=== PATIENT | female | born 1925 | race Caucasian/White ===

== ENCOUNTER 2016-05-08 16:42 | Emergency (ER) | payer MEDICARE, OTHER ==
--- NOTE | 2016-05-08 17:10 | EDM.PDOC ---
ED HPI GI/ABDOMINAL - General Chief Complaint: Abdominal Pain Stated Complaint: ABD PAIN Time Seen by Provider: 05/08/16 17:03 Source of Information: Reports: Patient History Limitations: Reports: No limitations - History of Present Illness INITIAL COMMENTS - FREE TEXT/NARRATIVE: 89-year-old female presents to the EDhe may come to her daughter do to abdominal discomfort. She states since of fullness early satiety and no room for food. She's really not in pain. Of note the patient has had recent diagnosis of pancreatic carcinoma. On 03 April she underwent extensive pancreatic duct opening with a pancreatic cholangiogram and stent placement. Also the common bile duct stent placed by interventional radiology. This was done because of severe jaundice and pruritus. ERCP was being performed as a period of measure. She comes today feeling more short of breath and has increased abdominal distention. This is most likely secondary to accumulation of fluid. Symptom Onset Date: 04/23/16 (gradually worsening over the last 2 weeks.) Timing/Duration: Reports: Week(s):, Gradual onset Location: generalized Quality: Reports: fullness, other Severity: moderate (early satiety) Improves with: Reports: other. Denies: defecating Worsens with: Reports: other (eating.). Denies: defecating Context: Reports: other (recent diagnosis of pancreatic carcinoma with obstruction of the common bile duct requiring common bile duct stenting and pancreatic duct stenting.). Denies: sick contact, bad/questionable food, out of country travel, recent surgery, recent trauma, lifting, activity/exercise Associated Symptoms (-Female): Reports: constipation, loss of appetite, malaise, other. Denies: chest pain, back pain, groin pain, shoulder pain, bloody stools, fever/chills (shortness of breath), nausea/vomiting Treatments FAMILY DAY CARE PROVIDER: Reports: Other (see below) - Related Data Allergies/ADRs: Allergies Allergy/AdvReac Type Severity Reaction Status Date / Time penicillin V Allergy Facial Verified 05/08/16 18:33 Swelling red dye Allergy Rash Verified 05/08/16 18:33 Home Meds: Home Meds Carvedilol 25 mg PO BID 05/16/14 [History] LORazepam [Ativan] 1.5 mg PO BEDTIME PRN 05/16/14 [History] Levothyroxine 25 mcg PO DAILY 05/16/14 [History] SitaGLIPtin [Januvia] 100 mg PO DAILY 05/16/14 [History] Spironolactone 25 mg PO DAILY 05/16/14 [History] Aspirin [Adult Low Dose Aspirin EC] 81 mg PO DAILY 05/08/16 [History] Azelastine/Fluticasone [Dymista Nasal [place]] 137 mcg NASBOTH BID 05/08/16 [ History] Cyanocobalamin/FA/Pyridoxine [B Complex-Folic Acid] 1 tab PO DAILY 05/08/16 [ History] Dexlansoprazole [Dexilant] 60 mg PO DAILY 05/08/16 [History] Furosemide [Lasix] 20 mg PO DAILY 05/08/16 [History] Furosemide [Lasix] 40 mg PO BID #60 tablet 05/08/16 [Rx] L.acid/L.casei/B.bif/B.mar/Fos [Probiotic Blend Capsule] 1 tab PO DAILY [History] Levofloxacin [Levaquin] 250 mg PO Q24H #6 tablet 05/08/16 [Rx] Lipase/Protease/Amylase [Zenpep DR 15,000 Unit] 2 cap PO TID 05/08/16 [History] Loratadine [Claritin] 10 mg PO DAILY 05/08/16 [History] Metoclopramide [Reglan] 5 mg PO DAILY 05/08/16 [History] Simethicone 125 mg PO TID 05/08/16 [History] Spironolactone [Aldactone] 25 mg PO BID #60 tablet 05/08/16 [Rx] Turmeric Po 1 tab PO DAILY 05/08/16 [History] Ubiquinone Q-10 100 mg PO DAILY 05/08/16 [History] Past Medical History HEENT History: Reports: Allergic rhinitis Cardiovascular History: Reports: Afib (paroxysmal A. 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 Presented with obstructive jaundice and severe pruritus.known hiatal hernia) Genitourinary History: Reports: Chronic renal insuffiency (stage III) Musculoskeletal History: Reports: Back pain, chronic, Osteoarthritis, Osteoporosis Endocrine/Metabolic History: Reports: Hypothyroidism (on supplement.) - Past Surgical History HEENT Surgical History: Reports: Cataract surgery (bilateral) Cardiovascular Surgical History: Reports: Pacer (insert in place remote pacemaker) GI Surgical History: Reports: Appendectomy, Cholecystectomy, Colonoscopy, Other (see below) (recent ERCP with placement of pancreatic duct stent and retrograde placement of common bile duct stent by interventional radiology.) Social & Family History - Tobacco Use Smoking Status *Q: Never Smoker - Alcohol Use Days Per Week of Alcohol Use: 0 Number of Drinks Per Day: 0 Total Drinks Per Week: 0 - Recreational Drug Use Recreational Drug Use: No Drug Use in Last 12 Months: No - Living Situation & Occupation Living situation: Reports: ED ROS GENERAL - Review of Systems Review Of Systems: See Below Constitutional: Reports: malaise, weakness, fatigue, decreased appetite (states is really no room for food.early satiety and fullness.). Denies: fever, chills , weight loss HEENT: Reports: Glasses Respiratory: Reports: Shortness of Breath (due to abdominal distention.) Cardiovascular: Reports: Dyspnea on exertion, Edema (sometimes when she gets up too quick chronically in the lower chest remedies.), Lightheadedness. Denies: Chest pain, Blood pressure problem, Claudication, Orthopnea Endocrine: Reports: fatigue, high glucose GI/Abdominal: Reports: Abdominal pain (diffuse abdominal discomfort), Constipation, Decreased appetite. Denies: Black stool, Bloody stool, Diarrhea, Difficulty swallowing, Vomiting : Reports: frequency, incontinence (6 stress incontinence.) Musculoskeletal: Reports: back pain Skin: Reports: pallor, other (grayish in color. No longer jaundiced after the biliary stent was placed retrograde through the liver itself.) Neurological: Reports: No Symptoms (grayish in color.) Psychiatric: Reports: No symptoms ED EXAM, GI/ABD - Physical Exam Exam: See Below Exam Limited By: No limitations General Appearance: alert, WD/WN, no apparent distress, other Eyes: bilateral: pale conjunctiva (mildly palate) Throat/Mouth: Normal inspection, Normal lips, Normal oropharynx Head: atraumatic, normocephalic Neck: normal inspection, supple, non-tender, full range of motion. No: carotid bruit, lymphadenopathy (L), lymphadenopathy (R), thyromegaly Respiratory/Chest: respiratory distress (mild tachypnea.), decreased breath sounds (mildly decreased at 8:30 percent the posterior lung wilburn.), rales ( right base.). No: wheezing Cardiovascular: normal peripheral pulses, regular rate, rhythm, no JVD, no murmur. No: systolic murmur GI/Abdominal: normal bowel sounds, distention (diffusely distended and firm to palpation.), other (abdomen is firm to palpation with I suspect an ascites wave. There is some diffuse tympany to percussion in the upper abdomen I believe due to aerophagia. No definitive masses or palpable. I think I can palpate the left hemicolon however.). No: splenomegaly, hernia, McBurney's sign , psoas sign Back Exam: normal inspection, full range of motion. No: CVA tenderness (L), CVA tenderness (R) Extremities: pedal edema (2+ pitting edema of both lower extremities.) Neurological: alert, oriented, CN II-XII intact, normal cognition Psychiatric: normal affect, normal mood Skin Exam: Warm, Dry, Intact, Normal color, No rash EKG INTERPRETATION EKG Date: 05/08/16 Time: 17:45 Rhythm: other (atrial-ventricular dual paced complexes.) Rate (beats/min): 65 [place]: LAD-left axis deviation (-82) QT: prolonged EKG Interpretation Comments: no further analysis attempted due to to paced rhythm. Course - Vital Signs Last Recorded V/S: Last Vital Signs Temp 37.2 C 05/08/16 17:00 Pulse 61 05/08/16 17:00 Resp 20 05/08/16 17:00 BP 113/68 05/08/16 17:00 Pulse Ox 96 05/08/16 17:33 - Orders/Labs/Meds Orders: Active Orders 24 hr Category Date Time Status Blood Glucose Check, Bedside [RC] ONETIME Care 05/08/16 17:12 Active EKG Documentation Completion [RC] STAT Care 05/08/16 17:12 Active Oxygen Therapy [RC] PRN Care 05/08/16 17:12 Active Abdomen 1V Flat [CR] Stat Exams 05/08/16 17:14 Taken Chest 1V Frontal [CR] Stat Exams 05/08/16 17:12 Taken CULTURE BLOOD [BC] Stat Lab 05/08/16 17:49 Received CULTURE BLOOD [BC] Stat Lab 05/08/16 18:11 Received CULTURE URINE [RM] Stat Lab 05/08/16 19:20 Uncollected INR,PT,PROTHROMBIN TIME [COAG] Stat Lab 05/08/16 18:11 Received Sodium Chloride 0.9% [Normal Saline] 1,000 ml Med 05/08/16 17:15 Active IV ASDIRECTED Blood Culture x2 Reflex Set [OM.PC] Stat Oth 05/08/16 17:13 Ordered Medication Orders Sodium Chloride (Normal Saline) 1,000 mls @ 75 mls/hr IV ASDIRECTED DEMARCO Last Admin: 05/08/16 17:35 Dose: 75 mls/hr Labs: Laboratory Tests 05/08/16 05/08/16 05/08/16 Range/Units 17:27 18:11 18:11 WBC 9.77 (3.98-10.04) K/mm3 RBC 3.39 L (3.98-5.22) M/mm3 Hgb 10.1 L (11.2-15.7) gm/L Hct 31.2 L (34.1-44.9) % MCV 92.0 (79.4-94.8) fl MCH 29.8 (25.6-32.2) pg MCHC 32.4 (32.2-35.5) g/dl RDW Std Deviation 52.9 H (36.4-46.3) fL Plt Count 151 L (182-369) K/mm3 MPV 9.5 (9.4-12.3) fl Neutrophils % (Manual) 38 L (40-60) % Band Neutrophils % 0 (0-10) % Lymphocytes % (Manual) 57 H (20-40) % Atypical Lymphs % 0 % Monocytes % (Manual) 4 (2-10) % Eosinophils % (Manual) 1 (0.7-5.8) % Basophils % (Manual) 0 L (0.1-1.2) Platelet Estimate Adequate Anisocytosis 1+ slight RBC Morph Comment Sodium 139 (136-145) mEq/L Potassium 3.8 (3.5-5.1) mEq/L Chloride 105 (98-107) mEq/L Carbon Dioxide 23 (21-32) mEq/L Anion Gap 14.8 (5-15) BUN 26 H (7-18) mg/dL Creatinine 1.5 H (0.55-1.02) mg/dL Est Cr Clr Drug Dosing 22.39 mL/min Estimated GFR (MDRD) 33 (>60) mL/min BUN/Creatinine Ratio 17.3 (14-18) Glucose 107 (83-115) mg/dL POC Glucose 110 (83-110) mg/dL Calcium 8.3 L (8.5-10.1) mg/dL Total Bilirubin 2.2 H (0.2-1.0) mg/dL AST 24 (15-37) U/L ALT 22 (14-59) U/L Alkaline Phosphatase 203 H (46-116) U/L Troponin I 0.071 H* (0.00-0.056) ng/mL C-Reactive Protein 6.1 H* (<1.0) mg/dL B-Natriuretic Peptide (0-100) pg/mL Total Protein 6.1 L (6.4-8.2) g/dl Albumin 2.2 L (3.4-5.0) g/dl Globulin 3.9 gm/dL Albumin/Globulin Ratio 0.6 L (1-2) Lipase (73-393) U/L Urine Color (Yellow) Urine Appearance (Clear) Urine pH (5.0-8.0) Ur Specific [place] (1.005-1.030) Urine Protein (Negative) Urine Glucose (UA) (Negative) Urine Ketones (Negative) Urine Occult Blood (Negative) Urine Nitrite (Negative) Urine Bilirubin (Negative) Urine Urobilinogen (0.2-1.0) Ur Leukocyte Esterase (Negative) Urine RBC (0-5) /hpf Urine WBC (0-5) /hpf Ur Squamous Epith Cells (0-5) /hpf Urine Bacteria (FEW) /hpf Urine Mucus (FEW) /hpf 05/08/16 05/08/16 05/08/16 Range/Units 18:11 18:11 18:23 WBC (3.98-10.04) K/mm3 RBC (3.98-5.22) M/mm3 Hgb (11.2-15.7) gm/L Hct (34.1-44.9) % MCV (79.4-94.8) fl MCH (25.6-32.2) pg MCHC (32.2-35.5) g/dl RDW Std Deviation (36.4-46.3) fL Plt Count (182-369) K/mm3 MPV (9.4-12.3) fl Neutrophils % (Manual) (40-60) % Band Neutrophils % (0-10) % Lymphocytes % (Manual) (20-40) % Atypical Lymphs % % Monocytes % (Manual) (2-10) % Eosinophils % (Manual) (0.7-5.8) % Basophils % (Manual) (0.1-1.2) Platelet Estimate Anisocytosis RBC Morph Comment Sodium (136-145) mEq/L Potassium (3.5-5.1) mEq/L Chloride (98-107) mEq/L Carbon Dioxide (21-32) mEq/L Anion Gap (5-15) BUN (7-18) mg/dL Creatinine (0.55-1.02) mg/dL Est Cr Clr Drug Dosing mL/min Estimated GFR (MDRD) (>60) mL/min BUN/Creatinine Ratio (14-18) Glucose (83-115) mg/dL POC Glucose (83-110) mg/dL Calcium (8.5-10.1) mg/dL Total Bilirubin (0.2-1.0) mg/dL AST (15-37) U/L ALT (14-59) U/L Alkaline Phosphatase (46-116) U/L Troponin I (0.00-0.056) ng/mL C-Reactive Protein (<1.0) mg/dL B-Natriuretic Peptide 306 H (0-100) pg/mL Total Protein (6.4-8.2) g/dl Albumin (3.4-5.0) g/dl Globulin gm/dL Albumin/Globulin Ratio (1-2) Lipase 1068 H (73-393) U/L Urine Color Yellow (Yellow) Urine Appearance Clear (Clear) Urine pH 5.5 (5.0-8.0) Ur Specific [place] 1.020 (1.005-1.030) Urine Protein Negative (Negative) Urine Glucose (UA) Negative (Negative) Urine Ketones Negative (Negative) Urine Occult Blood Negative (Negative) Urine Nitrite Negative (Negative) Urine Bilirubin Negative (Negative) Urine Urobilinogen 0.2 (0.2-1.0) Ur Leukocyte Esterase 1+ H (Negative) Urine RBC 0-5 (0-5) /hpf Urine WBC 10-20 H (0-5) /hpf Ur Squamous Epith Cells 5-10 H (0-5) /hpf Urine Bacteria Few (FEW) /hpf Urine Mucus Not seen (FEW) /hpf Meds: Medications Generic Name Dose Route Start Last Admin Trade Name Freq PRN Reason Stop Dose Admin Sodium Chloride 1,000 mls @ 75 mls/hr 05/08/16 17:15 05/08/16 17:35 Normal Saline IV 75 mls/hr ASDIRECTED DEMARCO Administration Discontinued Medications Generic Name Dose Route Start Last Admin Trade Name Freq PRN Reason Stop Dose Admin Cefazolin Sodium 1,000 mg 05/08/16 19:20 Ancef IVPUSH 05/08/16 19:21 ONETIME ONE Furosemide 40 mg 05/08/16 18:59 Lasix IVPUSH 05/08/16 19:00 NOW ONE - Radiology Interpretation Free Text/Narrative:: 10-year-old female presents the ED with her daughter. The history is that of diffuse abdominal discomfort and fullness. Early satiety no room for food. Feels always bloated and distended. The abdominal distention makes it difficult to take a full deep breath. The history is not clear to me. She had a retrograde common bile duct stent placed while in [facility] last 2 to develop a severe jaundice. It's unclear whether she had anicteric carcinoma diagnosed. The daughter doesn't know what was obstructing the common bile duct. Dr. Woodard wall of gastroenterology was could not place the common bile duct stent in the normal fashion and apparently interventional radiology did a retrograde through the liver. This result her jaundice. On my assessment she has some degree of ascites. Initially I will do a chest x-ray as I suspect there is a small pleural effusion on the right lower lung base. She is chronically anticoagulated. PT/INR will be checked. One view chest one view abdomen to be done. CT that will likely be obtained as well. I cannot define any active notes on this lady and I will therefore contact [facility] in [facility] to try and provide notes on her. - Re-Assessments/Exams Free Text/Narrative Re-Assessment/Exam: 05/08/16 17:30 Bedside blood sugar was 110. 05/08/16 18:28no blood tests are available yet on this patient.neither RV chest x-ray or the abdominal films done yet. 05/08/16 18:52chest x-ray does confirm bilateral pleural effusions a little worse on the right as compared to the left. Cardiac silhouette is upper limits of normal. Visualized upper portions of the lung wilburn are clear. There is mild hyperinflation of the lungs. Pacemaker present left upper anterior chest. X -ray of the abdomen shows evidence of ascites. There is one nonspecific dilated loop of small bowel in the left lower quadrant. No sign of bowel obstruction.The hematology shows a white count of 9.77 with 30% neutrophils and no bands hemoglobin is 10.1 hematocrit 31.2 platelet 101,000. After waiting an a chemistry. I think overall the best way to manage her ascites is with increased doses of furosemide and Aldactone. 05/08/16 19:21urinalysis also came back showing 20-30 white blood cells per high -power field. Urine culture will ordered. Will give her Ancef 1 g IV. She has a history of allergy to penicillin V. She states he swelled up around her eyes. Discussed the findings with both her and her daughter and the decision made to increase her furosemide and Aldactone in an effort to reduce her current fluid retention state. I've asked her to check her weight daily every morning and write down the wait until she sees the doctor next time. This encompassed just the Aldactone and furosemide levels. She should ideally see her physician and a seven-day days' time to have her serum potassium rechecked at due to the Aldactone. Departure - Departure Time of Disposition: 20:00 Disposition: Home, Self-Care 01 Condition: poor Clinical Impression: Pancreatic carcinoma, Pleural effusion associated with hepatic disorder Ascites Qualifiers: Ascites type: malignant Qualified Code(s): R18.0 - Malignant ascites Urinary tract infection Qualifiers: Urinary tract infection type: acute cystitis Hematuria presence: without hematuria Qualified Code(s): N30.00 - Acute cystitis without hematuria Prescriptions: Furosemide [Lasix] 40 mg PO BID #60 tablet Levofloxacin [Levaquin] 250 mg PO Q24H #6 tablet Spironolactone [Aldactone] 25 mg PO BID #60 tablet Referrals: Milady West PA-C [Primary Care Provider] - Forms: ED Department Discharge Additional Instructions: Evaluation emergency room today in regards to increasing abdominal distention and increasing shortness of breath. Increase in abdominal distention is making it hard to find him to eat. Recent diagnosis of pancreatic cancer and stent placement in the common bile duct to relieve severe jaundice and generalized itching. X-ray of the chest reveals fluid in the bottom of both lungs a little worse on the right than compared to the left. X-ray of the abdomen shows a lot of fluid within the abdomen which we call ascites. This is secondary to fluid accumulation coming from both the liver and the pancreas cancer. This also contributes of course to fluid retention in the lower cavities feet ankles and legs etc.the only other finding was a unit lower urinary tract infection which may or may not be making you ill. Due to the amount of fluid in her belly however we do not want this to get infected and urinary tract infection will be treated with IV antibiotics initially Ancef 1 g was given in the emergency department. The increased fluid retention which is to be expected as this disease process progresses we will increase the Lasix to 40 mg in the morning and 20 mg in the late afternoon such as 3 or 4:00. Similarly Aldactone should be increased to 25 mg twice daily at the same time the Lasix is taken. This is a beginning of an increase in diuretic medication to see what kind of response we get in terms of weight loss. He need to step on a scale morning anyway yourself and write it down so that as doctors were able to assess how well the medication is working. Ideally we would like to see you lose about 10 pounds of fluid in the next week. this should hopefully make you more comfortable and also feel like you have a little more air to breathe,antibiotic is to be Levaquin 250 mg once daily taken once in the morning for the next 6 days to clear up ear and tract infection. Suggest followup with her personal doctor in 7 -8 days time for repeat blood tests on the kidneys and serum potassium level did increase in the furosemide and Aldactone medications. Will also help us adjust further dosages if necessary to help remove more fluid if necessary. - My Orders Last 24 Hours: My Active Orders 05/08/16 17:12 Blood Glucose Check, Bedside [RC] ONETIME EKG Documentation Completion [RC] STAT Oxygen Therapy [RC] PRN Chest 1V Frontal [CR] Stat 05/08/16 17:13 Blood Culture x2 Reflex Set [OM.PC] Stat 05/08/16 17:14 Abdomen 1V Flat [CR] Stat 05/08/16 17:15 Sodium Chloride 0.9% [Normal Saline] 1,000 ml IV ASDIRECTED 05/08/16 17:49 CULTURE BLOOD [BC] Stat 05/08/16 18:11 CULTURE BLOOD [BC] Stat INR,PT,PROTHROMBIN TIME [COAG] Stat 05/08/16 19:20 CULTURE URINE [RM] Stat - Assessment/Plan Last 24 Hours: My Active Orders 05/08/16 17:12 Blood Glucose Check, Bedside [RC] ONETIME EKG Documentation Completion [RC] STAT Oxygen Therapy [RC] PRN Chest 1V Frontal [CR] Stat 05/08/16 17:13 Blood Culture x2 Reflex Set [OM.PC] Stat 05/08/16 17:14 Abdomen 1V Flat [CR] Stat 05/08/16 17:15 Sodium Chloride 0.9% [Normal Saline] 1,000 ml IV ASDIRECTED 05/08/16 17:49 CULTURE BLOOD [BC] Stat 05/08/16 18:11 CULTURE BLOOD [BC] Stat INR,PT,PROTHROMBIN TIME [COAG] Stat 05/08/16 19:20 CULTURE URINE [RM] Stat
[2016-05-08] MEDS ORDERED: Sodium Chloride 0.9% 1,000 ML IV SCH (17:15)
[2016-05-08] MEDS ORDERED: Furosemide 40 MG/4 ML VIAL IVPUSH ONE (18:59)
[2016-05-08] MEDS ORDERED: ceFAZolin 1,000 MG VIAL IVPUSH ONE (19:20)
[2016-05-08] MEDS ORDERED: ceFAZolin 1 GM in Premix Bag 1 BAG IV ONE (19:35)
[2016-05-08 20:52] VITALS: BP 131/55
--- NOTE | 2016-05-09 08:46 | CR ---
Abdomen: Supine view of the abdomen was obtained. Comparison: Previous abdominal x-ray of 04/10/16. Stent is identified most likely representing previous TIPS procedure or previous biliary procedure. Bowel gas pattern appears within normal limits. Calcification noted overlying the right iliac wing either due to bowel content or incidental calcification. Haziness noted within the abdomen and difficult to exclude ascites. Impression: 1. Questionable ascites. Ultrasound could confirm if clinically indicated. 2. Other incidental findings. Diagnostic code #2
--- NOTE | 2016-05-09 08:46 | CR ---
Chest: Frontal view of the chest was obtained. Comparison: No previous chest x-ray. Heart size and mediastinum are normal. Slight linear densities noted within both lung bases either due to scarring or bibasilar atelectasis. Blunting of the costophrenic angles are seen most likely chronic. Lungs otherwise are clear. Pacemaker is noted. Scoliosis is noted within the spine. Bony structures are osteopenic. Impression: 1. Atelectasis or more likely linear scarring within both lung bases. 2. Other findings as described above most likely chronic. Diagnostic code #2
== END 2016-05-08 20:48 | disposition home or self-care (01) ==
LOC: JD.ED 16:42
DX: C25.9 Malignant neoplasm of pancreas, unspecified (principal); J90 Pleural effusion, not elsewhere classified; R18.0 Malignant ascites; N30.00 Acute cystitis without hematuria; Z88.0 Allergy status to penicillin; Z91.048 Other nonmedicinal substance allergy status; Z79.82 Long term (current) use of aspirin; Z79.899 Other long term (current) drug therapy; I48.91 Unspecified atrial fibrillation; I25.10 Atherosclerotic heart disease of native coronary artery without angina pectoris; I12.9 Hypertensive chronic kidney disease with stage 1 through stage 4 chronic kidney disease, or unspecified chronic kidney disease; N18.3 Chronic kidney disease, stage 3 (moderate); Z95.0 Presence of cardiac pacemaker; J44.9 Chronic obstructive pulmonary disease, unspecified; I44.2 Atrioventricular block, complete; K21.9 Gastro-esophageal reflux disease without esophagitis; M19.90 Unspecified osteoarthritis, unspecified site; E03.9 Hypothyroidism, unspecified; K27.9 Peptic ulcer, site unspecified, unspecified as acute or chronic, without hemorrhage or perforation; M81.0 Age-related osteoporosis without current pathological fracture; R06.02 Shortness of breath
CPT/HCPCS: 36415; 71010; 74000; 80053; 81001; 82962; 83690; 83880; 84484; 85025; 85610; 86140; 87040; 87086; 93005; 96361; 96365; 96375; 99285; J0690; J1940; J7040; 99284; 99284-25

== ENCOUNTER 2016-05-22 20:14 | Emergency (ER) | payer MEDICARE, OTHER ==
[2016-05-22 20:26] VITALS: BP 120/66
[2016-05-22] MEDS ORDERED: Sodium Chloride 0.9% 10 ML Syringe FLUSH PRN (20:40)
[2016-05-22] MEDS ORDERED: Sodium Chloride 0.9% 1,000 ML IV STA (20:40)
--- NOTE | 2016-05-22 20:46 | EDM.PDOC ---
ED HPI GI/ABDOMINAL - General Chief Complaint: Genitourinary Problem Stated Complaint: CAN NOT URINATE Time Seen by Provider: 05/22/16 20:32 Source of Information: Reports: Patient, Family History Limitations: Reports: No limitations - History of Present Illness INITIAL COMMENTS - FREE TEXT/NARRATIVE: The patient presents because she cannot pass her urine. She has a history of pancreatic cancer and she does not want treatment. She was seen here 2 weeks ago and she had a UTI. She was also bloated then. She feels she is bloated again. She has no fever, cough, chest pain, abdominal pain, nausea or vomiting. She does have chills and some shortness of breath. She is having trouble passing her urine. It just dribbles out. She is not eating and drinking as much as she has in the past. Timing/Duration: Reports: Day(s): Context: Denies: sick contact, bad/questionable food, out of country travel, recent surgery, recent trauma, lifting, activity/exercise Associated Symptoms (-Female): Denies: chest pain, back pain, diarrhea, fever/ chills, nausea/vomiting - Related Data Allergies/ADRs: Allergies Allergy/AdvReac Type Severity Reaction Status Date / Time penicillin V Allergy Facial Verified 05/22/16 20:20 Swelling red dye Allergy Rash Verified 05/22/16 20:20 Home Meds: Home Meds Carvedilol 25 mg PO BID 05/16/14 [History] LORazepam [Ativan] 1.5 mg PO BEDTIME PRN 05/16/14 [History] Levothyroxine 25 mcg PO DAILY 05/16/14 [History] SitaGLIPtin [Januvia] 100 mg PO DAILY 05/16/14 [History] Spironolactone 25 mg PO DAILY 05/16/14 [History] Aspirin [Adult Low Dose Aspirin EC] 81 mg PO DAILY 05/08/16 [History] Azelastine/Fluticasone [Dymista Nasal [place]] 137 mcg NASBOTH BID 05/08/16 [ History] Cyanocobalamin/FA/Pyridoxine [B Complex-Folic Acid] 1 tab PO DAILY 05/08/16 [ History] Dexlansoprazole [Dexilant] 60 mg PO DAILY 05/08/16 [History] Furosemide [Lasix] 20 mg PO DAILY 05/08/16 [History] Furosemide [Lasix] 40 mg PO BID #60 tablet 05/08/16 [Rx] L.acid/L.casei/B.bif/B.mar/Fos [Probiotic Blend Capsule] 1 tab PO DAILY [History] Levofloxacin [Levaquin] 250 mg PO Q24H #6 tablet 05/08/16 [Rx] Lipase/Protease/Amylase [Zenpep DR 15,000 Unit] 2 cap PO TID 05/08/16 [History] Loratadine [Claritin] 10 mg PO DAILY 05/08/16 [History] Metoclopramide [Reglan] 5 mg PO DAILY 05/08/16 [History] Simethicone 125 mg PO TID 05/08/16 [History] Spironolactone [Aldactone] 25 mg PO BID #60 tablet 05/08/16 [Rx] Turmeric Po 1 tab PO DAILY 05/08/16 [History] Ubiquinone Q-10 100 mg PO DAILY 05/08/16 [History] Past Medical History HEENT History: Reports: Allergic rhinitis Cardiovascular History: Reports: Afib, CAD, High cholesterol, Hypertension, Pacemaker Other Cardiovascular History: 2006 pacemaker in [place]. [place] Respiratory History: Reports: COPD Gastrointestinal History: Reports: Cholelithiasis, Diverticulosis, Gastritis, GERD, Jaundice, PUD Genitourinary History: Reports: Chronic renal insuffiency Musculoskeletal History: Reports: Back pain, chronic, Osteoarthritis, Osteoporosis Psychiatric History: Reports: Anxiety Endocrine/Metabolic History: Reports: Hypothyroidism Other Endocrine/Metabolic History: took self off medication since she lost weight Oncologic (Cancer) History: Reports: Pancreatic Other Oncologic History: diagnosed in July; no chemo or radiation - Past Surgical History HEENT Surgical History: Reports: Cataract surgery Cardiovascular Surgical History: Reports: Pacer GI Surgical History: Reports: Appendectomy, Cholecystectomy, Colonoscopy Social & Family History - Tobacco Use Smoking Status *Q: Never Smoker - Caffeine Use Caffeine Use: Reports: Coffee, Soda, Tea - Alcohol Use Days Per Week of Alcohol Use: 0 Number of Drinks Per Day: 0 Total Drinks Per Week: 0 - Recreational Drug Use Recreational Drug Use: No Drug Use in Last 12 Months: No - Living Situation & Occupation Living situation: Reports: ED ROS GENERAL - Review of Systems Review Of Systems: See Below Constitutional: Reports: no symptoms HEENT: Reports: No symptoms Respiratory: Reports: Shortness of Breath. Denies: Cough Cardiovascular: Reports: No symptoms Endocrine: Reports: no symptoms GI/Abdominal: Reports: No symptoms : Reports: urinary retention. Denies: dysuria, frequency, hematuria Musculoskeletal: Reports: no symptoms Skin: Reports: no symptoms ED EXAM, GI/ABD - Physical Exam Exam: See Below Exam Limited By: No limitations General Appearance: alert, no apparent distress Ears: normal external exam Nose: normal inspection Head: atraumatic, normocephalic Neck: normal inspection Respiratory/Chest: no respiratory distress, lungs clear, normal breath sounds Cardiovascular: regular rate, rhythm, no edema, no murmur GI/Abdominal: soft, no organomegaly, no mass, tenderness (Mild to moderate to the upper abdomen) Course - Vital Signs Last Recorded V/S: Last Vital Signs Temp 98.5 F 05/22/16 20:20 Pulse 60 05/22/16 20:20 Resp BP 120/66 05/22/16 20:20 Pulse Ox 94 L 05/22/16 20:20 - Orders/Labs/Meds Orders: Active Orders 24 hr Category Date Time Status Peripheral IV Care [RC] . DIRECTED Care 05/22/16 20:41 Active Sodium Chloride 0.9% [Saline Flush] Med 05/22/16 20:40 Active 10 ml FLUSH ASDIRECTED PRN Peripheral IV Insertion Adult [OM.PC] Stat Oth 05/22/16 20:40 Ordered Medication Orders Sodium Chloride (Saline Flush) 10 ml FLUSH ASDIRECTED PRN PRN Reason: Keep Vein Open Last Admin: 05/22/16 21:06 Dose: 10 ml Labs: Laboratory Tests 05/22/16 05/22/16 05/22/16 Range/Units 21:00 21:05 21:05 WBC 12.57 H (3.98-10.04) K/mm3 RBC 3.65 L (3.98-5.22) M/mm3 Hgb 10.9 L (11.2-15.7) gm/L Hct 33.1 L (34.1-44.9) % MCV 90.7 (79.4-94.8) fl MCH 29.9 (25.6-32.2) pg MCHC 32.9 (32.2-35.5) g/dl RDW Std Deviation 50.7 H (36.4-46.3) fL Plt Count 156 L (182-369) K/mm3 MPV 8.9 L (9.4-12.3) fl Neut % (Auto) 28.2 L (34.0-71.1) % Lymph % (Auto) 62.9 H (19.3-51.7) % [place] % (Auto) 7.9 (4.7-12.5) % Eos % (Auto) 0.5 L (0.7-5.8) Baso % (Auto) 0.2 (0.1-1.2) % Neut # (Auto) 3.54 (1.56-6.13) K/mm3 Lymph # (Auto) 7.91 H (1.18-3.74) K/mm3 [place] # (Auto) 0.99 H (0.24-0.36) K/mm3 Eos # (Auto) 0.06 (0.04-0.36) K/mm3 Baso # (Auto) 0.03 (0.01-0.08) K/mm3 Manual Slide Review Abnormal smear Sodium 138 (136-145) mEq/L Potassium 3.3 L (3.5-5.1) mEq/L Chloride 104 (98-107) mEq/L Carbon Dioxide 24 (21-32) mEq/L Anion Gap 13.3 (5-15) BUN 35 H (7-18) mg/dL Creatinine 1.8 H (0.55-1.02) mg/dL Est Cr Clr Drug Dosing 19.44 mL/min Estimated GFR (MDRD) 27 (>60) mL/min BUN/Creatinine Ratio 19.4 H (14-18) Glucose 152 H (83-115) mg/dL Calcium 8.8 (8.5-10.1) mg/dL Total Bilirubin 1.6 H (0.2-1.0) mg/dL AST 21 (15-37) U/L ALT 18 (14-59) U/L Alkaline Phosphatase 159 H (46-116) U/L Total Protein 6.9 (6.4-8.2) g/dl Albumin 2.5 L (3.4-5.0) g/dl Globulin 4.4 gm/dL Albumin/Globulin Ratio 0.6 L (1-2) Lipase 1399 H (73-393) U/L Urine Color Light yellow (Yellow) Urine Appearance Clear (Clear) Urine pH 6.0 (5.0-8.0) Ur Specific [place] 1.015 (1.005-1.030) Urine Protein Negative (Negative) Urine Glucose (UA) Negative (Negative) Urine Ketones Negative (Negative) Urine Occult Blood Negative (Negative) Urine Nitrite Negative (Negative) Urine Bilirubin Negative (Negative) Urine Urobilinogen 0.2 (0.2-1.0) Ur Leukocyte Esterase Trace H (Negative) Urine RBC 0-5 (0-5) /hpf Urine WBC 0-5 (0-5) /hpf Ur Epithelial Cells 0-5 (0-5) /hpf Urine Bacteria Few (FEW) /hpf Urine Mucus Few (FEW) /hpf Meds: Medications Generic Name Dose Route Start Last Admin Trade Name Freq PRN Reason Stop Dose Admin Sodium Chloride 10 ml 05/22/16 20:40 05/22/16 21:06 Saline Flush FLUSH 10 ml ASDIRECTED PRN Administration Keep Vein Open Discontinued Medications Generic Name Dose Route Start Last Admin Trade Name Freq PRN Reason Stop Dose Admin Sodium Chloride 1,000 mls @ 1,000 mls/hr 05/22/16 20:40 05/22/16 21:06 Normal Saline IV 05/22/16 21:39 1,000 mls/hr .BOLUS STA Administration - Re-Assessments/Exams Free Text/Narrative Re-Assessment/Exam: 05/22/16 20:46 I ordered an IV NS 500mL bolus, labs and UA. 05/22/16 22:26 Her WBC was elevated at 12.57. Her Hgb 10.9. Her platelets are a little low at 156. Her K was a little low at 3.3. Her creatinine is elevated at 1.8. Her glucose is elevated at 152. Her total bili is elevated at 1.6. Her Alk Phos is elevated at 159. Her lipase was elevated at 1399. Her UA shows no UTI. She is urinating now and feeling better. I encourage her to drink more fluid. Departure - Departure Time of Disposition: 22:30 Disposition: Home, Self-Care 01 Condition: good Clinical Impression: Pancreatic carcinoma, Dehydration, Renal insufficiency Referrals: Milady West PA-C [Primary Care Provider] - 1 Week Forms: ED Department Discharge Additional Instructions: Drink plenty of fluids. Take your medication as prescribed. Please return if you are worse. - My Orders Last 24 Hours: My Active Orders 05/22/16 20:40 Sodium Chloride 0.9% [Saline Flush] 10 ml FLUSH ASDIRECTED PRN Peripheral IV Insertion Adult [OM.PC] Stat 05/22/16 20:41 Peripheral IV Care [RC] . DIRECTED - Assessment/Plan Last 24 Hours: My Active Orders 05/22/16 20:40 Sodium Chloride 0.9% [Saline Flush] 10 ml FLUSH ASDIRECTED PRN Peripheral IV Insertion Adult [OM.PC] Stat 05/22/16 20:41 Peripheral IV Care [RC] . DIRECTED
== END 2016-05-22 22:45 | disposition home or self-care (01) ==
LOC: JD.ED 20:14
DX: C25.9 Malignant neoplasm of pancreas, unspecified (principal); E86.0 Dehydration; I12.9 Hypertensive chronic kidney disease with stage 1 through stage 4 chronic kidney disease, or unspecified chronic kidney disease; N18.9 Chronic kidney disease, unspecified; I48.91 Unspecified atrial fibrillation; I25.10 Atherosclerotic heart disease of native coronary artery without angina pectoris; E78.00 Pure hypercholesterolemia, unspecified; K21.9 Gastro-esophageal reflux disease without esophagitis; M19.90 Unspecified osteoarthritis, unspecified site; F41.9 Anxiety disorder, unspecified; E03.9 Hypothyroidism, unspecified; Z88.0 Allergy status to penicillin; Z91.041 Radiographic dye allergy status; Z79.82 Long term (current) use of aspirin; Z79.899 Other long term (current) drug therapy; Z98.49 Cataract extraction status, unspecified eye; Z90.49 Acquired absence of other specified parts of digestive tract
CPT/HCPCS: 36415; 51798; 80053; 81001; 83690; 85025; 96360; 99283; J7040; J7050; 99284

== ENCOUNTER 2016-06-02 20:33 | Emergency (ER) | payer MEDICARE, OTHER ==
[2016-06-02 20:45] VITALS: BP 119/54
--- NOTE | 2016-06-02 20:58 | EDM.PDOC ---
ED HPI GENERAL MEDICAL PROBLEM - General Chief Complaint: Genitourinary Problem Stated Complaint: UNABLE TO URINATE Time Seen by Provider: 06/02/16 20:57 - History of Present Illness INITIAL COMMENTS - FREE TEXT/NARRATIVE: 89-year-old female presents emergency room unable to void. The patient has not been taking good amounts of by mouth fluid because she fills up so quickly. Patient has pancreatic cancer is not receiving chemotherapy or radiation, and was not a surgical candidate. She has developed some ascites. She has been seen for this several times. She denies any breathing difficulty shortness of breath chest pain chest pressure she complains of distention and she is developing some pressure sores on her bottom. - Related Data Allergies Allergy/AdvReac Type Severity Reaction Status Date / Time penicillin V Allergy Facial Verified 06/02/16 20:45 Swelling red dye Allergy Rash Verified 06/02/16 20:45 Home Meds: Home Meds Carvedilol 25 mg PO BID 05/16/14 [History] LORazepam [Ativan] 1.5 mg PO BEDTIME PRN 05/16/14 [History] Levothyroxine 25 mcg PO DAILY 05/16/14 [History] SitaGLIPtin [Januvia] 100 mg PO DAILY 05/16/14 [History] Spironolactone 25 mg PO DAILY 05/16/14 [History] Aspirin [Adult Low Dose Aspirin EC] 81 mg PO DAILY 05/08/16 [History] Azelastine/Fluticasone [Dymista Nasal [place]] 137 mcg NASBOTH BID 05/08/16 [ History] Cyanocobalamin/FA/Pyridoxine [B Complex-Folic Acid] 1 tab PO DAILY 05/08/16 [ History] Dexlansoprazole [Dexilant] 60 mg PO DAILY 05/08/16 [History] Furosemide [Lasix] 20 mg PO DAILY 05/08/16 [History] Furosemide [Lasix] 40 mg PO BID #60 tablet 05/08/16 [Rx] L.acid/L.casei/B.bif/B.mar/Fos [Probiotic Blend Capsule] 1 tab PO DAILY [History] Levofloxacin [Levaquin] 250 mg PO Q24H #6 tablet 05/08/16 [Rx] Lipase/Protease/Amylase [Zenpep DR 15,000 Unit] 2 cap PO TID 05/08/16 [History] Loratadine [Claritin] 10 mg PO DAILY 05/08/16 [History] Metoclopramide [Reglan] 5 mg PO DAILY 05/08/16 [History] Simethicone 125 mg PO TID 05/08/16 [History] Spironolactone [Aldactone] 25 mg PO BID #60 tablet 05/08/16 [Rx] Turmeric Po 1 tab PO DAILY 05/08/16 [History] Ubiquinone Q-10 100 mg PO DAILY 05/08/16 [History] Past Medical History HEENT History: Reports: Allergic rhinitis Cardiovascular History: Reports: Afib, CAD, High cholesterol, Hypertension, Pacemaker Other Cardiovascular History: 2007 pacemaker in [place]. [place] Respiratory History: Reports: COPD Gastrointestinal History: Reports: Cholelithiasis, Diverticulosis, Gastritis, GERD, Jaundice, PUD Genitourinary History: Reports: Chronic renal insuffiency Musculoskeletal History: Reports: Back pain, chronic, Osteoarthritis, Osteoporosis Psychiatric History: Reports: Anxiety Endocrine/Metabolic History: Reports: Hypothyroidism Other Endocrine/Metabolic History: took self off medication since she lost weight Oncologic (Cancer) History: Reports: Pancreatic Other Oncologic History: diagnosed in July; no chemo or radiation - Past Surgical History HEENT Surgical History: Reports: Cataract surgery Cardiovascular Surgical History: Reports: Pacer GI Surgical History: Reports: Appendectomy, Cholecystectomy, Colonoscopy Social & Family History - Tobacco Use Smoking Status *Q: Never Smoker - Caffeine Use Caffeine Use: Reports: Coffee, Soda, Tea - Alcohol Use Days Per Week of Alcohol Use: 0 Number of Drinks Per Day: 0 Total Drinks Per Week: 0 - Recreational Drug Use Recreational Drug Use: No Drug Use in Last 12 Months: No - Living Situation & Occupation Living situation: Reports: ED ROS GENERAL - Review of Systems Review Of Systems: See Below Constitutional: Reports: no symptoms. Denies: fever, chills HEENT: Reports: No symptoms Respiratory: Reports: No Symptoms Cardiovascular: Reports: No symptoms GI/Abdominal: Reports: Decreased appetite, Distension. Denies: Abdominal pain, Nausea, Vomiting : Reports: urinary retention. Denies: dysuria, flank pain, frequency, hematuria ED EXAM, GENERAL - Physical Exam Exam: See Below Exam Limited By: No limitations General Appearance: alert, no apparent distress Head: atraumatic, normocephalic Neck: normal inspection, supple, non-tender, full range of motion Respiratory/Chest: no respiratory distress, lungs clear, normal breath sounds Cardiovascular: regular rate, rhythm, no edema, no murmur GI/Abdominal: normal bowel sounds, soft, non tender, other (She has some noticeable ascites present abdomen is not tense) Back Exam: normal inspection. No: CVA tenderness (L), CVA tenderness (R) Extremities: normal inspection, no pedal edema Neurological: alert, oriented, normal cognition Psychiatric: normal affect, normal mood Skin Exam: Other (She has 2 great zeros and one grade 1 decubitus ulcers over her sacrum) Course - Vital Signs Last Recorded V/S: Last Vital Signs Temp 36.3 C 06/02/16 20:43 Pulse 61 06/02/16 20:43 Resp 16 06/02/16 20:43 BP 119/54 L 06/02/16 20:43 Pulse Ox 98 06/02/16 20:43 - Orders/Labs/Meds Orders: Active Orders 24 hr Category Date Time Status Lactated Ringers [Ringers, Lactated] 1,000 ml Med 06/02/16 21:30 Active IV ASDIRECTED Medication Orders Lactated Ringer's (Ringers, Lactated) 1,000 mls @ 100 mls/hr IV ASDIRECTED DEMARCO Labs: Laboratory Tests 06/02/16 06/02/16 06/02/16 Range/Units 21:35 21:35 21:40 WBC 12.36 H (3.98-10.04) K/mm3 RBC 3.62 L (3.98-5.22) M/mm3 Hgb 10.9 L (11.2-15.7) gm/L Hct 33.3 L (34.1-44.9) % MCV 92.0 (79.4-94.8) fl MCH 30.1 (25.6-32.2) pg MCHC 32.7 (32.2-35.5) g/dl RDW Std Deviation 50.4 H (36.4-46.3) fL Plt Count 154 L (182-369) K/mm3 MPV 9.8 (9.4-12.3) fl Neutrophils % (Manual) 26 L (40-60) % Band Neutrophils % 0 (0-10) % Lymphocytes % (Manual) 51 H (20-40) % Atypical Lymphs % 14 % Monocytes % (Manual) 5 (2-10) % Eosinophils % (Manual) 1 (0.7-5.8) % Basophils % (Manual) 2 H (0.1-1.2) Myelocytes % 1 Platelet Estimate Adequate Plt Morphology Comment Normal Polychromasia 1+ slight Poikilocytosis 1+ slight Anisocytosis 1+ slight Target Cells 1+ slight Tear Drop Cells 1+ slight Ovalocytes 1+ slight RBC Morph Comment Abnormal Sodium 139 (136-145) mEq/L Potassium 3.4 L (3.5-5.1) mEq/L Chloride 105 (98-107) mEq/L Carbon Dioxide 23 (21-32) mEq/L Anion Gap 14.4 (5-15) BUN 34 H (7-18) mg/dL Creatinine 1.7 H (0.55-1.02) mg/dL Est Cr Clr Drug Dosing TNP Estimated GFR (MDRD) 28 (>60) mL/min BUN/Creatinine Ratio 20.0 H (14-18) Glucose 175 H (83-115) mg/dL Calcium 8.9 (8.5-10.1) mg/dL Total Bilirubin 1.4 H (0.2-1.0) mg/dL AST 20 (15-37) U/L ALT 22 (14-59) U/L Alkaline Phosphatase 165 H (46-116) U/L Total Protein 7.1 (6.4-8.2) g/dl Albumin 2.6 L (3.4-5.0) g/dl Globulin 4.5 gm/dL Albumin/Globulin Ratio 0.6 L (1-2) Lipase 1444 H (73-393) U/L Urine Color Yellow (Yellow) Urine Appearance Slt cloudy H (Clear) Urine pH 6.0 (5.0-8.0) Ur Specific [place] 1.020 (1.005-1.030) Urine Protein Negative (Negative) Urine Glucose (UA) Negative (Negative) Urine Ketones Negative (Negative) Urine Occult Blood Negative (Negative) Urine Nitrite Negative (Negative) Urine Bilirubin Negative (Negative) Urine Urobilinogen 0.2 (0.2-1.0) Ur Leukocyte Esterase Negative (Negative) Urine RBC 0-5 (0-5) /hpf Urine WBC 0-5 (0-5) /hpf Ur Epithelial Cells Not seen (0-5) /hpf Urine Bacteria Not seen (FEW) /hpf Urine Mucus Not seen (FEW) /hpf Meds: Medications Generic Name Dose Route Start Last Admin Trade Name Jud PRN Reason Stop Dose Admin Lactated Ringer's 1,000 mls @ 100 mls/hr 06/02/16 21:30 Ringers, Lactated IV ASDIRECTED DEMARCO Discontinued Medications Generic Name Dose Route Start Last Admin Trade Name Fernieq PRN Reason Stop Dose Admin Lactated Ringer's 500 mls @ 999 mls/hr 06/02/16 21:21 06/02/16 21:55 Ringers, Lactated IV 06/02/16 21:51 999 mls/hr .BOLUS ONE Administration - Re-Assessments/Exams Free Text/Narrative Re-Assessment/Exam: 06/02/16 23:00 Patient of bladder catheter placed and drained out slightly over 400 cc with good relief of symptoms, she received 500 cc of LR and is feeling better. We did examine her pressure ulcers and a DuoDERM was placed. At this point were to decrease her Lasix it is uncertain exactly what her doses but will decrease to 20 mg a day increase her spironolactone to 25 mg twice a day I would recommend further increases of her spironolactone to help with the ascites give her prerenal condition will tolerate this. Departure - Departure Time of Disposition: 22:54 Disposition: Home, Self-Care 01 Clinical Impression: Ascites, Urinary retention, Prerenal azotemia, Pancreatic cancer, Decubitus skin ulcer Referrals: Milady West PA-C [Primary Care Provider] - Forms: ED Department Discharge Additional Instructions: Return to the emergency room with any questions or problems. Decrease your furosemide, or Lasix, to 20 mg every morning. Increase your spironolactone to 25 mg twice a day. [place] be rechecked for the changes in your diuretic treatment. And for further evaluation of the pressure ulcers Push more fluids orally drinks small volumes but more frequently. Picked up some DuoDERM to use under pressure ulcers. - My Orders Last 24 Hours: My Active Orders 06/02/16 21:30 Lactated Ringers [Ringers, Lactated] 1,000 ml IV ASDIRECTED - Assessment/Plan Last 24 Hours: My Active Orders 06/02/16 21:30 Lactated Ringers [Ringers, Lactated] 1,000 ml IV ASDIRECTED
[2016-06-02] MEDS ORDERED: Lactated Ringers 500 ML IV ONE (21:21)
[2016-06-02] MEDS ORDERED: Lactated Ringers 1,000 ML IV SCH (21:30)
== END 2016-06-02 23:05 | disposition home or self-care (01) ==
LOC: JD.ED 20:33
DX: R18.8 Other ascites (principal); R33.9 Retention of urine, unspecified; C25.9 Malignant neoplasm of pancreas, unspecified; L89.151 Pressure ulcer of sacral region, stage 1; I12.9 Hypertensive chronic kidney disease with stage 1 through stage 4 chronic kidney disease, or unspecified chronic kidney disease; N18.9 Chronic kidney disease, unspecified; I25.10 Atherosclerotic heart disease of native coronary artery without angina pectoris; E78.00 Pure hypercholesterolemia, unspecified; J44.9 Chronic obstructive pulmonary disease, unspecified; K21.9 Gastro-esophageal reflux disease without esophagitis; E03.9 Hypothyroidism, unspecified; F41.9 Anxiety disorder, unspecified; M19.90 Unspecified osteoarthritis, unspecified site; M81.0 Age-related osteoporosis without current pathological fracture; Z95.0 Presence of cardiac pacemaker; Z90.49 Acquired absence of other specified parts of digestive tract; Z98.49 Cataract extraction status, unspecified eye; Z79.899 Other long term (current) drug therapy; Z88.0 Allergy status to penicillin; Z79.82 Long term (current) use of aspirin
CPT/HCPCS: 36415; 51798; 80053; 81001; 83690; 85025; 96360; 99284; G0008; J7120; P9612; 99283

== ENCOUNTER 2016-06-07 20:47 | Emergency (ER) | payer MEDICARE, OTHER ==
[2016-06-07 21:00] VITALS: BP 113/55
--- NOTE | 2016-06-07 23:15 | EDM.PDOC ---
ED HPI GI/ABDOMINAL - General Chief Complaint: Abdominal Pain Stated Complaint: UPSET STOMACH AND SWOLLEN FEET Time Seen by Provider: 06/07/16 21:12 Source of Information: Reports: Patient, Family History Limitations: Reports: No limitations - History of Present Illness INITIAL COMMENTS - FREE TEXT/NARRATIVE: Is an 89-year-old female. She has a history of pancreatic cancer and had stent placed in the common bile duct. She has refused radiation or chemotherapy. She comes tonight because he is feeling mildly short of breath and has some abdominal discomfort but no obvious pain. Another problem is that she has swelling in her feet and the swelling is making her feet very sore. The patient is congenial and does not appear to be any great distress. She complains of some abdominal discomfort but denies any pain or cramping. He did have a chest x-ray back in April this suggested pleural effusions on both sides but there are very small in the phrenic angles. She's had no fever no chills no cough no congestion. She's had no nausea or vomiting. She denies any urinary symptoms. - Related Data Allergies/ADRs: Allergies Allergy/AdvReac Type Severity Reaction Status Date / Time penicillin V Allergy Facial Verified 06/02/16 20:45 Swelling red dye Allergy Rash Verified 06/02/16 20:45 Home Meds: Home Meds Carvedilol 25 mg PO BID 05/16/14 [History] LORazepam [Ativan] 1.5 mg PO BEDTIME PRN 05/16/14 [History] Levothyroxine 25 mcg PO DAILY 05/16/14 [History] SitaGLIPtin [Januvia] 100 mg PO DAILY 05/16/14 [History] Spironolactone 25 mg PO DAILY 05/16/14 [History] Aspirin [Adult Low Dose Aspirin EC] 81 mg PO DAILY 05/08/16 [History] Azelastine/Fluticasone [Dymista Nasal [place]] 137 mcg NASBOTH BID 05/08/16 [ History] Cyanocobalamin/FA/Pyridoxine [B Complex-Folic Acid] 1 tab PO DAILY 05/08/16 [ History] Dexlansoprazole [Dexilant] 60 mg PO DAILY 05/08/16 [History] Furosemide [Lasix] 20 mg PO DAILY 05/08/16 [History] Furosemide [Lasix] 40 mg PO BID #60 tablet 05/08/16 [Rx] L.acid/L.casei/B.bif/B.mar/Fos [Probiotic Blend Capsule] 1 tab PO DAILY [History] Levofloxacin [Levaquin] 250 mg PO Q24H #6 tablet 05/08/16 [Rx] Lipase/Protease/Amylase [Zenpep DR 15,000 Unit] 2 cap PO TID 05/08/16 [History] Loratadine [Claritin] 10 mg PO DAILY 05/08/16 [History] Metoclopramide [Reglan] 5 mg PO DAILY 05/08/16 [History] Simethicone 125 mg PO TID 05/08/16 [History] Spironolactone [Aldactone] 25 mg PO BID #60 tablet 05/08/16 [Rx] Turmeric Po 1 tab PO DAILY 05/08/16 [History] Ubiquinone Q-10 100 mg PO DAILY 05/08/16 [History] Past Medical History HEENT History: Reports: Allergic rhinitis Cardiovascular History: Reports: Afib, CAD, High cholesterol, Hypertension, Pacemaker Other Cardiovascular History: 2007 pacemaker in [place] Respiratory History: Reports: COPD Gastrointestinal History: Reports: Cholelithiasis, Diverticulosis, Gastritis, GERD, Jaundice, PUD Genitourinary History: Reports: Chronic renal insuffiency Musculoskeletal History: Reports: Back pain, chronic, Osteoarthritis, Osteoporosis Psychiatric History: Reports: Anxiety Endocrine/Metabolic History: Reports: Hypothyroidism Other Endocrine/Metabolic History: took self off medication since she lost weight Oncologic (Cancer) History: Reports: Pancreatic Other Oncologic History: diagnosed in July; no chemo or radiation - Past Surgical History HEENT Surgical History: Reports: Cataract surgery Cardiovascular Surgical History: Reports: Pacer GI Surgical History: Reports: Appendectomy, Cholecystectomy, Colonoscopy Social & Family History - Tobacco Use Smoking Status *Q: Never Smoker - Caffeine Use Caffeine Use: Reports: Coffee, Soda, Tea - Alcohol Use Days Per Week of Alcohol Use: 0 Number of Drinks Per Day: 0 Total Drinks Per Week: 0 - Recreational Drug Use Recreational Drug Use: No Drug Use in Last 12 Months: No - Living Situation & Occupation Living situation: Reports: ED ROS GENERAL - Review of Systems Review Of Systems: See Below Constitutional: Reports: weakness. Denies: fever, chills HEENT: Reports: No symptoms Respiratory: Reports: No Symptoms Cardiovascular: Reports: No symptoms Endocrine: Reports: no symptoms GI/Abdominal: Reports: Decreased appetite, Distension. Denies: Nausea, Vomiting : Reports: no symptoms Musculoskeletal: Reports: other (As per history of present illness) Skin: Reports: other (As per history of present illness) Neurological: Reports: No Symptoms Psychiatric: Reports: No symptoms Hematologic/Lymphatic: Reports: no symptoms ED EXAM, GI/ABD - Physical Exam Exam: See Below Exam Limited By: No limitations General Appearance: alert, no apparent distress Ears: normal external exam Nose: normal inspection Throat/Mouth: Normal lips, Normal voice Head: normocephalic, other (Patient does appear to be pale) Neck: supple Respiratory/Chest: no respiratory distress, lungs clear, normal breath sounds Cardiovascular: regular rate, rhythm, no murmur GI/Abdominal: soft, distention, other (On palpation to the abdomen she is not particularly tender on palpation in the 4 quadrants, she does have obvious ascites with a splash noted) Extremities: normal inspection, other (Her lower extremities her feet mostly maybe mildly into her ankle she does have a lot of puffy edema noted, the left foot is worse than the right foot she does not have any leg edema noted) Neurological: alert, oriented Psychiatric: normal affect, normal mood Skin Exam: Warm, Dry Course - Vital Signs Last Recorded V/S: Last Vital Signs Temp 98.3 F 06/07/16 20:59 Pulse 65 06/07/16 20:59 Resp 20 06/07/16 20:59 BP 113/55 L 06/07/16 20:59 Pulse Ox 96 06/07/16 20:59 - Orders/Labs/Meds Orders: Active Orders 24 hr Category Date Time Status Chest 1V Frontal [CR] Stat Exams 06/07/16 21:58 Taken Labs: Laboratory Tests 06/07/16 06/07/16 Range/Units 22:11 22:11 WBC 11.22 H (3.98-10.04) K/mm3 RBC 3.57 L (3.98-5.22) M/mm3 Hgb 10.6 L (11.2-15.7) gm/L Hct 33.1 L (34.1-44.9) % MCV 92.7 (79.4-94.8) fl MCH 29.7 (25.6-32.2) pg MCHC 32.0 L (32.2-35.5) g/dl RDW Std Deviation 49.0 H (36.4-46.3) fL Plt Count 157 L (182-369) K/mm3 MPV 9.0 L (9.4-12.3) fl Neut % (Auto) 31.2 L (34.0-71.1) % Lymph % (Auto) 61.6 H (19.3-51.7) % [place] % (Auto) 5.9 (4.7-12.5) % Eos % (Auto) 0.8 (0.7-5.8) Baso % (Auto) 0.2 (0.1-1.2) % Neut # (Auto) 3.51 (1.56-6.13) K/mm3 Lymph # (Auto) 6.91 H (1.18-3.74) K/mm3 [place] # (Auto) 0.66 H (0.24-0.36) K/mm3 Eos # (Auto) 0.09 (0.04-0.36) K/mm3 Baso # (Auto) 0.02 (0.01-0.08) K/mm3 Manual Slide Review Abnormal smear Sodium 135 L (136-145) mEq/L Potassium 3.7 (3.5-5.1) mEq/L Chloride 102 (98-107) mEq/L Carbon Dioxide 24 (21-32) mEq/L Anion Gap 12.7 (5-15) BUN 28 H (7-18) mg/dL Creatinine 1.7 H (0.55-1.02) mg/dL Est Cr Clr Drug Dosing 20.58 mL/min Estimated GFR (MDRD) 28 (>60) mL/min BUN/Creatinine Ratio 16.5 (14-18) Glucose 286 H (83-115) mg/dL Calcium 8.8 (8.5-10.1) mg/dL Total Bilirubin 1.2 H (0.2-1.0) mg/dL AST 19 (15-37) U/L ALT 21 (14-59) U/L Alkaline Phosphatase 158 H (46-116) U/L Total Protein 6.7 (6.4-8.2) g/dl Albumin 2.4 L (3.4-5.0) g/dl Globulin 4.3 gm/dL Albumin/Globulin Ratio 0.6 L (1-2) - Re-Assessments/Exams Free Text/Narrative Re-Assessment/Exam: 06/07/16 23:17 I spoke to the family the patient at length regarding the fluid in her abdomen that approach pressure on her diaphragms and her lungs were time she'll feel short of breath. She is already on Lasix and Spiriva lactone twice a day and on not going to change this. I also suggested that they did some [id number] compression stockings ago to the knee to help push that fluid from her feet up into her thighs she can urinate the fluid out. I encouraged them to followup with her family doctor and they have an appointment on Thursday regarding her sun downer symptoms and she seems to be experiencing recently and possible medications. 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 Referrals: Milady West PA-C [Primary Care Provider] - Forms: ED Department Discharge Additional Instructions: Consider getting some compression stockings just [id number] to go to her knees to help with the fluid in her feet, continue with her medications especially the fluid medications to help with the fluid in her feet and the fluid in her abdomen, followup with her primary care provider on Thursday as scheduled and talked to the provider regarding her symptoms that she seems to be experiencing and possible medications, return to the ER if needed - My Orders Last 24 Hours: My Active Orders 06/07/16 21:58 Chest 1V Frontal [CR] Stat - Assessment/Plan Last 24 Hours: My Active Orders 06/07/16 21:58 Chest 1V Frontal [CR] Stat
--- NOTE | 2016-06-08 13:54 | CR ---
Chest: Portable view of the chest was obtained. Comparison: Previous chest x-ray of 05/08/16. Mild increased density seen within both lung bases. Findings are stable from prior exam. Upper lungs are clear. Pacemaker noted. Bony structures are osteopenic. Impression: 1. Findings within both lung bases which are stable from prior chest x-ray. Nothing acute is appreciated. Diagnostic code #2
== END 2016-06-07 23:32 | disposition home or self-care (01) ==
LOC: JD.ED 20:47
DX: R18.0 Malignant ascites (principal); D63.0 Anemia in neoplastic disease; N28.9 Disorder of kidney and ureter, unspecified; I48.91 Unspecified atrial fibrillation; I25.10 Atherosclerotic heart disease of native coronary artery without angina pectoris; E78.00 Pure hypercholesterolemia, unspecified; J44.9 Chronic obstructive pulmonary disease, unspecified; K21.9 Gastro-esophageal reflux disease without esophagitis; I12.9 Hypertensive chronic kidney disease with stage 1 through stage 4 chronic kidney disease, or unspecified chronic kidney disease; N18.9 Chronic kidney disease, unspecified; E03.9 Hypothyroidism, unspecified; Z98.49 Cataract extraction status, unspecified eye; Z90.49 Acquired absence of other specified parts of digestive tract; Z88.0 Allergy status to penicillin; Z91.041 Radiographic dye allergy status; Z79.82 Long term (current) use of aspirin; Z79.899 Other long term (current) drug therapy
CPT/HCPCS: 36415; 71010; 71010-26; 80053; 85025; 99283; 99284

== ENCOUNTER 2016-06-15 20:43 | Inpatient (IN) | payer MEDICARE, OTHER ==
[2016-06-15] MEDS ORDERED: Ondansetron 4 MG/2 ML SDV IVPUSH ONE (21:33)
[2016-06-15] MEDS ORDERED: fentaNYL 100 MCG/2 ML SDV IVPUSH ONE (21:34)
--- NOTE | 2016-06-15 21:41 | EDM.PDOC ---
ED HPI GI/ABDOMINAL - General Chief Complaint: Abdominal Pain Stated Complaint: PAIN/NOT FEELING WELL/PANCREATIC CA Time Seen by Provider: 06/15/16 21:25 Source of Information: Reports: Patient, Family (Most of the history was obtained from the family.) History Limitations: Reports: Physical impairment (She appears to be very lethargic and answers only a few questions. He appears to be extremely tired.) - History of Present Illness INITIAL COMMENTS - FREE TEXT/NARRATIVE: 82-year-old female brought to the hospital by family members because of increased abdominal pain. She is in no slept for apparently for the last 2-3 days. Pain medication was obtained from [facility] late last week it's unclear what this is she's only taken 2 pain pills over the weekend. The last was at 1:00 in the morning on Thursday which seemed to relieve her pain but it makes her tired and sleepy for 16 hours and she got in. She is taking only small sips of fluids. No real solids. 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 She opted for no chemotherapy or radiotherapy. She has a history of bilateral small pleural effusions and mild ascites. Pain currently is mostly at upper abdomen and radiates through to her back. It is constant in nature. She needs help to walk to get to the bathroom and bedroom. She for the most part has been bedridden. Family has not sought hospice care at this time. Claims of intermittent nausea but also severe anorexia just as one each nothing tastes good. Does not exhibit any trouble swallowing. Timing/Duration: Reports: Week(s):, Constant, Getting worse Location: other (Mostly upper abdominal pain particularly epigastrium.) Quality: Reports: fullness, other Severity: severe (Deep constant aching pain with no colicky component) Improves with: Reports: other (Nothing seems to make it better or worse except maybe eating a bit makes it worse.) Context: Reports: other (Known cancer of the pancreas.). Denies: sick contact, bad/questionable food, out of country travel, recent surgery, recent trauma, lifting, activity/exercise Associated Symptoms (-Female): Reports: back pain (Below the shoulder blades bilaterally.), constipation ( Radiates from the abdomen.), loss of appetite, malaise, nausea/vomiting. Denies: chest pain, bloody stools, fever/chills, other (Nausea without any vomiting.) Treatments TOTER: Reports: Other (see below) (Percocet tablet taken twice over the weekend which did relieve her pain transiently but made her very sleepy and obtunded without ability beat for 6-8 hours) - Related Data Allergies/ADRs: Allergies Allergy/AdvReac Type Severity Reaction Status Date / Time penicillin V Allergy Facial Verified 06/15/16 21:26 Swelling red dye Allergy Rash Verified 06/15/16 21:26 Home Meds: Home Meds Carvedilol 25 mg PO BID 05/16/14 [History] LORazepam [Ativan] 1.5 mg PO BEDTIME PRN 05/16/14 [History] Levothyroxine 25 mcg PO DAILY 05/16/14 [History] Spironolactone 25 mg PO DAILY 05/16/14 [History] Aspirin [Adult Low Dose Aspirin EC] 81 mg PO DAILY 05/08/16 [History] Dexlansoprazole [Dexilant] 60 mg PO DAILY 05/08/16 [History] Furosemide [Lasix] 20 mg PO BEDTIME 05/08/16 [History] Loratadine [Claritin] 10 mg PO DAILY 05/08/16 [History] Metoclopramide [Reglan] 5 mg PO DAILY 05/08/16 [History] Mometasone/Formoterol [Dulera 100-5 MCG] 2 puff IH BID 06/15/16 [History] Potassium Chloride 10 meq PO DAILY 06/15/16 [History] traMADol [Ultram] 50 mg PO BID PRN 06/15/16 [History] Furosemide [Lasix] 40 mg PO DAILY 06/16/16 [History] Past Medical History HEENT History: Reports: Allergic rhinitis Cardiovascular History: Reports: Afib, CAD, High cholesterol, Hypertension, Pacemaker Other Cardiovascular History: 2007 pacemaker in [place] Respiratory History: Reports: COPD Gastrointestinal History: Reports: Cholelithiasis, Diverticulosis, Gastritis, GERD, Jaundice, PUD Genitourinary History: Reports: Chronic renal insuffiency Musculoskeletal History: Reports: Back pain, chronic, Osteoarthritis, Osteoporosis Psychiatric History: Reports: Anxiety Endocrine/Metabolic History: Reports: Hypothyroidism Other Endocrine/Metabolic History: took self off medication since she lost weight Oncologic (Cancer) History: Reports: Pancreatic Other Oncologic History: diagnosed in July; no chemo or radiation - Past Surgical History HEENT Surgical History: Reports: Cataract surgery Cardiovascular Surgical History: Reports: Pacer GI Surgical History: Reports: Appendectomy, Cholecystectomy, Colonoscopy Social & Family History - Family History Family Medical History: Noncontributory - Tobacco Use Smoking Status *Q: Never Smoker Second Hand Smoke Exposure: No - Caffeine Use Caffeine Use: Reports: None - Alcohol Use Days Per Week of Alcohol Use: 0 Number of Drinks Per Day: 0 Total Drinks Per Week: 0 - Recreational Drug Use Recreational Drug Use: No Drug Use in Last 12 Months: No - Living Situation & Occupation Living situation: Reports: ED ROS GENERAL - Review of Systems Review Of Systems: See Below Constitutional: Reports: malaise, weakness, fatigue, decreased appetite, weight loss. Denies: fever, chills HEENT: Reports: Other (Mildly hard of hearing.) Respiratory: Reports: Shortness of Breath. Denies: Wheezing (Chronically), Pleuritic Chest Pain, Cough, Sputum, Hemoptysis Cardiovascular: Reports: Blood pressure problem, Dyspnea on exertion ( more so than the right.), Edema (Both lower chimney these mostly the left), Lightheadedness. Denies: Chest pain, Claudication (Tends to run low.), Orthopnea, Palpitations, Syncope Endocrine: Reports: fatigue GI/Abdominal: Reports: Abdominal pain, Anorexia (See history of present illness) , Constipation. Denies: Distension, Flatus, Hematemesis, Hematochezia, Melena, Vomiting, Other Musculoskeletal: Reports: back pain, other. Denies: hand pain, leg pain, foot pain, joint pain, joint swelling Skin: Reports: other (Quite pale.) Neurological: Reports: Confusion (After the pain pills she seems confused), Dizziness, Difficulty Walking (Requires two-person help to walk), Weakness. Denies: Headache, Numbness, Seizure, Syncope, Tingling, Tremors, Trouble Speaking, Change in Speech, Gait Disturbance Psychiatric: Reports: No symptoms Hematologic/Lymphatic: Reports: no symptoms Immunologic: Reports: no symptoms ED EXAM, GI/ABD - Physical Exam Exam: See Below Exam Limited By: Physical impairment (She appears very tired and doesn't want to answer much questions.) General Appearance: lethargic (Appears ill.), moderate distress, other Eyes: bilateral: normal appearance (Not icteric. Mild to moderate pallor.) Ears: hearing loss (Hearing decreased bilaterally) Throat/Mouth: Other Head: atraumatic (Tongue is dry and coated.), normocephalic Neck: normal inspection, supple, non-tender, other. No: lymphadenopathy (L), lymphadenopathy (R) Respiratory/Chest: chest non-tender, decreased breath sounds (Air entry is decreased in both bases without any adventitial sounds noted. Shallow breathing however is appreciated.). No: rales, rhonchi, wheezing Cardiovascular: regular rate, rhythm, no edema, no gallop, no murmur, no rub. No: normal peripheral pulses, diastolic murmur, systolic murmur, gallop/S3, gallop/S4 GI/Abdominal: hypoactive bowel sounds, tenderness (Or tenderness to palpation upper abdomen particularly in the epigastrium. The scope with minimal palpation. ), distention (Abdomen is diffusely distended and tympanitic to percussion throughout.) Back Exam: normal inspection, full range of motion. No: CVA tenderness (L), CVA tenderness (R) Extremities: pedal edema (Bilaterally ankles and feet. Left worse than right.), pallor (Mild.) Neurological: alert, CN II-XII intact, no motor/sensory deficits, inattentive, disoriented, slow to respond ([place] to time and place at this time), abnormal reflexes (Absent ankle jerks and knee jerks.). No: oriented, normal gait, normal reflexes Psychiatric: flat affect Skin Exam: Warm, Dry, Pallor Course - Vital Signs Last Recorded V/S: Last Vital Signs Temp 37.6 C 06/15/16 21:21 Pulse 62 06/15/16 21:21 Resp 18 06/15/16 21:21 BP 104/52 L 06/15/16 21:21 Pulse Ox 91 L 06/15/16 21:21 - Orders/Labs/Meds Orders: Active Orders 24 hr Category Date Time Status EKG Documentation Completion [RC] STAT Care 06/15/16 21:35 Active Oxygen Therapy [RC] ASDIRECTED Care 06/15/16 21:35 Active Abdomen 1V Flat [CR] Stat Exams 06/15/16 21:35 Taken Chest 1V Frontal [CR] Stat Exams 06/15/16 21:35 Taken LACTIC ACID [CHEM] Stat Lab 06/16/16 00:11 Ordered Sodium Chloride 0.9% [Normal Saline] 1,000 ml Med 06/15/16 21:45 Active IV ASDIRECTED Medication Orders Sodium Chloride (Normal Saline) 1,000 mls @ 150 mls/hr IV ASDIRECTED DEMARCO Last Infusion: 06/15/16 22:50 Dose: 150 mls/hr Infusion: 06/15/16 22:36 Dose: 999 mls/hr Admin: 06/15/16 22:20 Dose: 150 mls/hr Labs: Laboratory Tests 06/15/16 06/15/16 06/15/16 Range/Units 21:50 21:50 21:50 WBC 15.34 H (3.98-10.04) K/mm3 RBC 3.47 L (3.98-5.22) M/mm3 Hgb 10.2 L (11.2-15.7) gm/L Hct 31.2 L (34.1-44.9) % MCV 89.9 (79.4-94.8) fl MCH 29.4 (25.6-32.2) pg MCHC 32.7 (32.2-35.5) g/dl RDW Std Deviation 44.7 (36.4-46.3) fL Plt Count 117 L (182-369) K/mm3 MPV 10.4 (9.4-12.3) fl Neutrophils % (Manual) 77 H (40-60) % Band Neutrophils % 0 (0-10) % Lymphocytes % (Manual) 15 L (20-40) % Atypical Lymphs % 0 % Monocytes % (Manual) 8 (2-10) % Eosinophils % (Manual) 0 L (0.7-5.8) % Basophils % (Manual) 0 L (0.1-1.2) Toxic Granulation 1+ slight Platelet Estimate Decreased Plt Morphology Comment Normal Poikilocytosis 3+ marked Ion Cells 1+ slight Acanthocytes (Spur) 1+ slight PT 11.7 (8.0-13.0) SECONDS INR 1.07 APTT 28 (22-36) SECONDS Sodium 129 L (136-145) mEq/L Potassium 4.3 (3.5-5.1) mEq/L Chloride 99 (98-107) mEq/L Carbon Dioxide 16 L (21-32) mEq/L Anion Gap 18.3 H (5-15) BUN 48 H (7-18) mg/dL Creatinine 2.1 H (0.55-1.02) mg/dL Est Cr Clr Drug Dosing TNP Estimated GFR (MDRD) 22 (>60) mL/min BUN/Creatinine Ratio 22.9 H (14-18) Glucose 206 H (83-115) mg/dL Calcium 8.5 (8.5-10.1) mg/dL Magnesium 1.5 L (1.8-2.4) mg/dl Total Bilirubin 1.7 H (0.2-1.0) mg/dL AST 13 L (15-37) U/L ALT 15 (14-59) U/L Alkaline Phosphatase 128 H (46-116) U/L B-Natriuretic Peptide (0-100) pg/mL Total Protein 6.3 L (6.4-8.2) g/dl Albumin 2.0 L (3.4-5.0) g/dl Globulin 4.3 gm/dL Albumin/Globulin Ratio 0.5 L (1-2) Lipase 101 (73-393) U/L /08/25 Range/Units 21:50 WBC (3.98-10.04) K/mm3 RBC (3.98-5.22) M/mm3 Hgb (11.2-15.7) gm/L Hct (34.1-44.9) % MCV (79.4-94.8) fl MCH (25.6-32.2) pg MCHC (32.2-35.5) g/dl RDW Std Deviation (36.4-46.3) fL Plt Count (182-369) K/mm3 MPV (9.4-12.3) fl Neutrophils % (Manual) (40-60) % Band Neutrophils % (0-10) % Lymphocytes % (Manual) (20-40) % Atypical Lymphs % % Monocytes % (Manual) (2-10) % Eosinophils % (Manual) (0.7-5.8) % Basophils % (Manual) (0.1-1.2) Toxic Granulation Platelet Estimate Plt Morphology Comment Poikilocytosis [place] Cells Acanthocytes (Spur) PT (8.0-13.0) SECONDS INR APTT (22-36) SECONDS Sodium (136-145) mEq/L Potassium (3.5-5.1) mEq/L Chloride (98-107) mEq/L Carbon Dioxide (21-32) mEq/L Anion Gap (5-15) BUN (7-18) mg/dL Creatinine (0.55-1.02) mg/dL Est Cr Clr Drug Dosing Estimated GFR (MDRD) (>60) mL/min BUN/Creatinine Ratio (14-18) Glucose (83-115) mg/dL Calcium (8.5-10.1) mg/dL Magnesium (1.8-2.4) mg/dl Total Bilirubin (0.2-1.0) mg/dL AST (15-37) U/L ALT (14-59) U/L Alkaline Phosphatase (46-116) U/L B-Natriuretic Peptide 672 H (0-100) pg/mL Total Protein (6.4-8.2) g/dl Albumin (3.4-5.0) g/dl Globulin gm/dL Albumin/Globulin Ratio (1-2) Lipase (73-393) U/L Meds: Medications Generic Name Dose Route Start Last Admin Trade Name Freq PRN Reason Stop Dose Admin Sodium Chloride 1,000 mls @ 150 mls/hr 06/15/16 21:45 06/15/16 22:50 Normal Saline IV 150 mls/hr ASDIRECTED DEMARCO Infusion Discontinued Medications Generic Name Dose Route Start Last Admin Trade Name Freq PRN Reason Stop Dose Admin Fentanyl 25 mcg 06/15/16 21:34 06/15/16 22:20 Sublimaze IVPUSH 06/15/16 21:35 25 mcg ONETIME ONE Administration Hydromorphone HCl 0.25 mg 06/16/16 00:08 Dilaudid IVPUSH 06/16/16 00:09 ONETIME ONE Ondansetron HCl 4 mg 06/15/16 21:33 06/15/16 22:20 Zofran IVPUSH 06/15/16 21:34 4 mg ONETIME ONE Administration - Radiology Interpretation Free Text/Narrative:: 82-year-old female brought to the ED for evaluation of abdominal pain. Patient was diagnosed with pancreatic carcinoma in July and 2015. She did require a common bile duct stent at that time which I believe remains in place. She at this point time is reaching end-stage disease. She's taking very little orally. She can hardly walk without 2 person assist. She her abdominal pain is quite severe and family has been giving her couple of Percocets over the weekend which type her pain but make her completely obtunded for a lengthy period of time and she can't eat or drink during that time frame. She isn't making much in the way of urine. Family has not sought hospice care at this time. On examination she appears to be volume depleted. She taking shallow respirations therefore I cannot hear any adventitial sounds in the posterior lung wilburn. The abdomen is very tender to palpation upper abdomen with a palpable mass in the epigastrium. The abdomen is otherwise distended and tympanic to percussion. No evidence that she is in urinary retention although, she has been in the past. I will have the nurses do a bladder scan on her. Plan is to give her fluids IV normal saline at 150 mils per hour to labs are back. One view chest x- ray and will give him to be obtained. We'll give fentanyl 25 mcg IV for pain relief is Zofran 4 mg IV. - Re-Assessments/Exams Free Text/Narrative Re-Assessment/Exam: 06/15/16 22:30 chest x-ray reveals mild cardiomegaly with inability to see the left costophrenic angle. There is a pacemaker in the left upper anterior chest. There is an infiltrate in the right lower lung wilburn either pneumonia or fluid. Abdominal films reveal increased air throughout the small and large bowel without any signs of obstruction.her pressure dropped to 65 systolic and she was given a 250 male normal saline fluid bolus which brought it up to 88 systolic. 06/15/16 23:34labs are finally back. They reveal an elevated white count at 15.34 with 77% neutrophils no bands. Hemoglobin is low at 10.2 hematocrit is 31.2 platelets 117,000. Coags show a PT of 11.7 INR 1.07 PTT is 28. Sodium is low at 129 potassium is 4.3 chloride 99. Bicarbonate is low at 16. Anion gap is 18.3. Glucose 206 magnesium low at 1.5 .creatinine is 2.1. EGFR is 2290 stage IV chronic kidney disease.bilirubin is 1.7. AST is 13 ALT of 15 alkaline phosphatase 128. BNP is elevated at 672. Lipase 101. She remains hypotensive with BP 85/62. Infiltrates right lower lobe is likely fluid but it could also be an early pneumonic process. I will give her [id number] mg IV to cover for any potential pneumonia. The quantity is evidence of congestive heart failure in light of hypotension. Gnosis remains extremely poor. 06/15/16 23:36 Discussed case with the family and the patient is DO NOT RESUSCITATE status. This week with Dr. Guevara welder production line arc hospitalist in this regard. Domiciles at this time is extremely guarded. 06/16/16 00:08 patient seems to be in more pain at this time. We'll give her 0.25 mg of Dilaudid IV.have discussed the case with Dr. Guevara welder production line arc hospitalist the patient will be admitted to the [facility] surgery floor for compassionate terminal care .Dr. 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 Prognosis remains extremely guarded. Infiltrate right lower lobe either fluid or pneumonia. - My Orders Last 24 Hours: My Active Orders 06/15/16 21:35 EKG Documentation Completion [RC] STAT Oxygen Therapy [RC] ASDIRECTED Abdomen 1V Flat [CR] Stat Chest 1V Frontal [CR] Stat 06/15/16 21:45 Sodium Chloride 0.9% [Normal Saline] 1,000 ml IV ASDIRECTED 06/16/16 00:11 LACTIC ACID [CHEM] Stat - Assessment/Plan Last 24 Hours: My Active Orders 06/15/16 21:35 EKG Documentation Completion [RC] STAT Oxygen Therapy [RC] ASDIRECTED Abdomen 1V Flat [CR] Stat Chest 1V Frontal [CR] Stat 06/15/16 21:45 Sodium Chloride 0.9% [Normal Saline] 1,000 ml IV ASDIRECTED 06/16/16 00:11 LACTIC ACID [CHEM] Stat
[2016-06-15] MEDS ORDERED: Sodium Chloride 0.9% 1,000 ML IV SCH (21:45)
[2016-06-16] MEDS ORDERED: HYDROmorphone 0.5 MG/0.5 ML Syringe IVPUSH ONE (00:08)
[2016-06-16] MEDS ORDERED: Ondansetron 4 MG/2 ML SDV IVPUSH PRN (02:01)
[2016-06-16] MEDS ORDERED: Heparin Sodium 10,000 Units/1 ML MDV SUBCUT SCH (02:15)
[2016-06-16] MEDS ORDERED: Heparin Sodium 5,000 Units/ML Vial ONE (03:00)
[2016-06-16] MEDS: Levofloxacin/Dextrose 5%-Water 750 MG in Premix Bag 1 BAG IV SCH (03:13)
[2016-06-16] MEDS: Sodium Chloride 0.9% 1,000 ML IV SCH ×2 (03:14→17:22)
[2016-06-16] MEDS: Morphine 2 MG/ML Syringe SUBCUT PRN (04:10)
--- NOTE | 2016-06-16 09:09 | PCM.HP ---
H&P History of Present Illness - General Date of Service: 06/16/16 Admit Problem/Dx: Admission Diagnosis/Problem Admission Diagnosis/Problem Abdominal pain Source of Information: Provider History Limitations: Reports: No limitations - History of Present Illness Initial Comments - Free Text/Narative: 89 year old female with a history of pancreatic cancer has had decreased activity; ingestion of food and water has decreased. She complains of abdominal pain. This is associated with malaise and nausea/vomiting. There has been no fever or chills. She reportedly rarely takes narcotics, but after taking perocet on Thursday and Thursday became obtunded per her children. The patient lives at home in [place] with her bedridden spouse, he is nonverbal. ED evaluation documented a RLL infiltrate, she has been started on Levoquin in the ED. She is being seen after several hours of hydration and an antibiotic, she appears alert and oriented, 1-2. At the time she was seen, she was sitting up drinking tea able to answer simple questions. Onset of Symptoms: Reports: unknown/unsure Duration of Symptoms: Reports: Day(s): Location: Reports: generalized Quality: Reports: Sharp Severity: moderate Improves with: Reports: None Worsens with: Reports: None Associated Symptoms: Reports: malaise, nausea/vomiting, weakness - Related Data Allergies/Adverse Reactions: Allergies Allergy/AdvReac Type Severity Reaction Status Date / Time penicillin V Allergy Facial Verified 06/15/16 21:26 Swelling red dye Allergy Rash Verified 06/15/16 21:26 Home Medications: Home Meds Carvedilol 25 mg PO BID 05/16/14 [History] LORazepam [Ativan] 1.5 mg PO BEDTIME PRN 05/16/14 [History] Levothyroxine 25 mcg PO DAILY 05/16/14 [History] Spironolactone 25 mg PO DAILY 05/16/14 [History] Aspirin [Adult Low Dose Aspirin EC] 81 mg PO DAILY 05/08/16 [History] Dexlansoprazole [Dexilant] 60 mg PO DAILY 05/08/16 [History] Furosemide [Lasix] 20 mg PO BEDTIME 05/08/16 [History] Loratadine [Claritin] 10 mg PO DAILY 05/08/16 [History] Metoclopramide [Reglan] 5 mg PO DAILY 05/08/16 [History] Mometasone/Formoterol [Dulera 100-5 MCG] 2 puff IH BID 06/15/16 [History] Potassium Chloride 10 meq PO DAILY 06/15/16 [History] traMADol [Ultram] 50 mg PO BID PRN 06/15/16 [History] Furosemide [Lasix] 40 mg PO DAILY 06/16/16 [History] Past Medical History HEENT History: Reports: Allergic rhinitis Cardiovascular History: Reports: Afib, CAD, High cholesterol, Hypertension, Pacemaker Other Cardiovascular History: 2007 pacemaker in [place]. [place] Respiratory History: Reports: COPD Gastrointestinal History: Reports: Cholelithiasis, Diverticulosis, Gastritis, GERD, Jaundice, PUD Genitourinary History: Reports: Chronic renal insuffiency Musculoskeletal History: Reports: Back pain, chronic, Osteoarthritis, Osteoporosis Psychiatric History: Reports: Anxiety Endocrine/Metabolic History: Reports: Hypothyroidism Other Endocrine/Metabolic History: took self off medication since she lost weight Oncologic (Cancer) History: Reports: Pancreatic Other Oncologic History: diagnosed in July; no chemo or radiation - Past Surgical History HEENT Surgical History: Reports: Cataract surgery Cardiovascular Surgical History: Reports: Pacer GI Surgical History: Reports: Appendectomy, Cholecystectomy, Colonoscopy Social & Family History - Family History Family Medical History: Noncontributory - Tobacco Use Smoking Status *Q: Unknown Ever Smoked Second Hand Smoke Exposure: No - Caffeine Use Caffeine Use: Reports: None - Alcohol Use Days Per Week of Alcohol Use: 0 Number of Drinks Per Day: 0 Total Drinks Per Week: 0 - Recreational Drug Use Recreational Drug Use: No Drug Use in Last 12 Months: No - Living Situation & Occupation Living situation: Reports: H&P Review of Systems - Review of Systems: Review Of Systems: See Below General: Reports: weakness, fatigue, decreased appetite HEENT: Reports: no symptoms Cardiovascular: Reports: no symptoms Gastrointestinal: Reports: Abdominal pain Genitourinary: Reports: no symptoms Musculoskeletal: Reports: back pain Skin: Reports: no symptoms Psychiatric: Reports: no symptoms Neurological: Reports: No Symptoms Hematologic/Lymphatic: Reports: no symptoms Immunologic: Reports: no symptoms Exam - Exam Exam: See Below - Vital Signs Vital Signs: Last Vital Signs Temp 36.7 C 06/16/16 07:33 Pulse 63 06/16/16 07:33 Resp 16 06/16/16 07:33 BP 112/39 L 06/16/16 07:33 Pulse Ox 97 06/16/16 07:33 Weight: 63.231 kg - Exam Quality Assessment: DVT prophylaxis General: alert, oriented HEENT: Conjunctiva clear, EOMI, Nares patent, Normal nasal septum, Pupils equal , Pupils reactive Neck: supple, trachea midline Lungs: Normal respiratory effort Cardiovascular: regular rate Abdomen: Normal Bowel Sounds, Soft (Female) Exam: Deferred Rectal (Female) Exam: Deferred Back Exam: normal inspection Extremities: normal pulses Skin: warm Neurological: cranial nerves intact Neuro Extensive - Mental Status: alert Neuro Extensive - Motor, Sensory, Reflexes: CN II-XII intact Psychiatric: alert - Patient Data Lab Results last 24 hrs: Laboratory Results - last 24 hr 06/16/16 06/16/16 06/16/16 Range/Units 00:42 05:28 05:28 WBC 17.36 H (3.98-10.04) K/mm3 RBC 3.08 L (3.98-5.22) M/mm3 Hgb 9.1 L (11.2-15.7) gm/L Hct 28.1 L (34.1-44.9) % MCV 91.2 (79.4-94.8) fl MCH 29.5 (25.6-32.2) pg MCHC 32.4 (32.2-35.5) g/dl RDW Std Deviation 45.1 (36.4-46.3) fL Plt Count 102 L (182-369) K/mm3 MPV 10.4 (9.4-12.3) fl Neut % (Auto) 82.9 H (34.0-71.1) % Lymph % (Auto) 11.8 L (19.3-51.7) % [place] % (Auto) 4.7 (4.7-12.5) % Eos % (Auto) 0 L (0.7-5.8) Baso % (Auto) 0.1 (0.1-1.2) % Neut # (Auto) 14.40 H (1.56-6.13) K/mm3 Lymph # (Auto) 2.05 (1.18-3.74) K/mm3 [place] # (Auto) 0.82 H (0.24-0.36) K/mm3 Eos # (Auto) 0.00 L (0.04-0.36) K/mm3 Baso # (Auto) 0.01 (0.01-0.08) K/mm3 Manual Slide Review Abnormal smear Sodium 129 L (136-145) mEq/L Potassium 4.3 (3.5-5.1) mEq/L Chloride 99 (98-107) mEq/L Carbon Dioxide 18 L (21-32) mEq/L Anion Gap 16.3 H (5-15) BUN 47 H (7-18) mg/dL Creatinine 2.2 H (0.55-1.02) mg/dL Est Cr Clr Drug Dosing 15.91 mL/min Estimated GFR (MDRD) 21 (>60) mL/min BUN/Creatinine Ratio 21.4 H (14-18) Glucose 214 H (83-115) mg/dL Lactic Acid 1.5 (0.4-2.0) mmol/L Calcium 8.1 L (8.5-10.1) mg/dL Result Diagrams: 06/17/16 04:57 06/17/16 04:57 *Q Meaningful Use (ADM) - VTE *Q VTE Criteria *Q: - Stroke *Q Stroke Criteria *Q: - AMI *Q AMI Criteria *Q: - Problem List (1) Chronic renal insufficiency, stage IV (severe) SNOMED Code(s): 65205151 ICD Code: N18.4 - CHRONIC KIDNEY DISEASE, STAGE 4 (SEVERE) Status: Acute Current Visit: Yes (2) Hyponatremia SNOMED Code(s): 01105661 ICD Code: E87.1 - HYPO-OSMOLALITY AND HYPONATREMIA Status: Acute Current Visit: Yes (3) Pancreatic carcinoma SNOMED Code(s): 651628554 ICD Code: C25.9 - MALIGNANT NEOPLASM OF PANCREAS, UNSPECIFIED Status: Acute Current Visit: Yes (4) Volume depletion SNOMED Code(s): 85323562 ICD Code: E86.9 - VOLUME DEPLETION, UNSPECIFIED Status: Acute Current Visit: Yes Problem List Initiated/Reviewed/Updated: Yes Orders Last 24hrs: Active Orders 24 hr Category Date Time Status Vital Signs [RC] Q6H Care 06/16/16 04:00 Active Clear Liquid Diet [DIET] Diet 06/16/16 Breakfast Active CBC W/O DIFF,HEMOGRAM [HEME] MOTH@0700 Lab 06/19/16 07:00 Ordered CBC W/O DIFF,HEMOGRAM [HEME] MOTH@0700 Lab 06/23/16 07:00 Ordered CBC W/O DIFF,HEMOGRAM [HEME] MOTH@0700 Lab 06/26/16 07:00 Ordered CBC W/O DIFF,HEMOGRAM [HEME] MOTH@0700 Lab 06/30/16 07:00 Ordered CBC W/O DIFF,HEMOGRAM [HEME] MOTH@0700 Lab 07/03/16 07:00 Ordered CBC W/O DIFF,HEMOGRAM [HEME] MOTH@0700 Lab 07/07/16 07:00 Ordered Heparin Sodium Med 06/16/16 02:15 Active 5,000 units SUBCUT Q8H Levofloxacin/Dextrose 5%-Water [Levaquin in D5W 750 MG/ Med 06/16/16 02:00 Active 150 ML] 750 mg Premix Bag 1 bag IV Q48H Morphine Med 06/16/16 01:59 Active 1 mg SUBCUT Q2H PRN Ondansetron [Zofran] Med 06/16/16 02:01 Active 4 mg IVPUSH Q8H PRN Sodium Chloride 0.9% [Normal Saline] 1,000 ml Med 06/16/16 02:00 Active IV ASDIRECTED Code Status [Resuscitation Status] Routine Resus Stat 06/16/16 01:52 Ordered Medication Orders Heparin Sodium (Porcine) (Heparin Sodium) 5,000 units SUBCUT Q8H [facility] Last Admin: 06/16/16 03:22 Dose: Sodium Chloride (Normal Saline) 1,000 mls @ 150 mls/hr IV ASDIRECTED [facility] Last Infusion: 06/16/16 00:35 Dose: 999 mls/hr Infusion: 06/15/16 22:50 Dose: 150 mls/hr Infusion: 06/15/16 22:36 Dose: 999 mls/hr Admin: 06/15/16 22:20 Dose: 150 mls/hr Sodium Chloride (Normal Saline) 1,000 mls @ 75 mls/hr IV ASDIRECTED [facility] Last Admin: 06/16/16 03:14 Dose: 75 mls/hr Levofloxacin/Dextrose 750 mg/ (Premix) 150 mls @ 100 mls/hr IV Q48H [facility] Last Admin: 06/16/16 03:13 Dose: 100 mls/hr Morphine Sulfate (Morphine) 1 mg SUBCUT Q2H PRN PRN Reason: Pain Last Admin: 06/16/16 04:10 Dose: 1 mg Ondansetron HCl (Zofran) 4 mg IVPUSH Q8H PRN PRN Reason: Nausea Assessment/Plan Comment:: Impression: Severe Abdominal Pain with history of pancreatic cancer Dehydration AMS, resolved Leukocytosis RLL infiltrate CKD stage IV DNR/DNI Chronic CAD PPM HTN Hyperlipidemia GERD Hypothyroidism GERD Plan: NPO/advance diet as tolerated IVF Continue levoquin Nebs PT/OT/SW/CM DVT prophylaxis
[2016-06-16] MEDS: Heparin Sodium 5,000 Units/ML Vial SUBCUT SCH ×2 (10:08→17:22)
--- NOTE | 2016-06-16 10:34 | CR ---
Abdomen: Supine view of the abdomen was obtained. Comparison: Previous abdominal x-ray of 05/08/16. Right-sided biliary stent is noted. Slightly prominent gas within bowel is seen which appears to be mostly colon. Disc space narrowing is noted within the lower thoracic spine. Degenerative endplate spurring is noted within the lower thoracic spine. Intrahepatic biliary air is incidentally noted. Impression: 1. Slightly prominent gas within mostly colon. Findings presumably represent ileus. 2. Right-sided biliary stent with incidental air seen within the intrahepatic biliary tree. 3. Other incidental findings. Diagnostic code #2
--- NOTE | 2016-06-16 10:34 | CR ---
Chest: Portable view of the chest was obtained. Comparison: Previous chest x-ray of 06/07/16. Increased density is seen within the right lung base, left lung base and left upper lung. Findings appear to represent areas of scarring as they appear fairly stable from prior exam. No definite acute infiltrates are seen. Heart size and mediastinum are normal. Scoliosis is present within the spine with scattered degenerative spurring. Pacemaker is present. Impression: 1. Findings as described above. No appreciable change is seen from prior chest x-ray. Diagnostic code #2
[2016-06-16] MEDS ORDERED: Albuterol/Ipratropium 3.0-0.5 MG/3 ML Neb Soln NEB PRN (20:32)
[2016-06-16] MEDS ORDERED: Metoclopramide 10 MG/2 ML SDV IVPUSH PRN (20:33)
[2016-06-16] MEDS: Formoterol/Mometasone 100-5 MCG 8.8 GM Inhaler IH SCH ×2 (21:14→21:37)
[2016-06-16] MEDS: LORazepam 1 MG Tab PO PRN (21:54)
[2016-06-17] MEDS: Heparin Sodium 5,000 Units/ML Vial SUBCUT SCH ×3 (03:32→19:08)
[2016-06-17] MEDS: Pantoprazole 40 MG Tab.CR PO SCH (06:42)
[2016-06-17] MEDS: Sodium Chloride 0.9% 1,000 ML IV SCH ×2 (06:42→21:02)
[2016-06-17] MEDS: Formoterol/Mometasone 100-5 MCG 8.8 GM Inhaler IH SCH ×2 (08:31→20:42)
[2016-06-17] MEDS: Aspirin 81 MG Tab.EC PO SCH (09:08)
[2016-06-17] MEDS: Levothyroxine 25 MCG Tab PO SCH (09:08)
--- NOTE | 2016-06-17 09:42 | PCM.PN ---
- General Info Date of Service: 06/17/16 Functional Status: Reports: tolerating diet, urinating - Review of Systems General: Reports: Weakness HEENT: Reports: no symptoms Pulmonary: Reports: no symptoms Cardiovascular: Reports: No Symptoms Gastrointestinal: Reports: No symptoms Genitourinary: Reports: no symptoms Musculoskeletal: Reports: no symptoms Skin: Reports: no symptoms Neurological: Reports: No Symptoms Psychiatric: Reports: no symptoms - Patient Data Vitals - most recent: Last Vital Signs Temp 36.6 C 06/17/16 08:23 Pulse 65 06/17/16 08:23 Resp 18 06/17/16 08:23 BP 121/73 06/17/16 08:23 Pulse Ox 94 L 06/17/16 08:31 Weight - most recent: 64.864 kg I&O - last 24 hours: Intake & Output 06/16/16 06/17/16 06/17/16 22:59 06:59 14:59 Intake Total 1150 1480 Output Total 700 Balance 1150 780 Lab Results last 24 hrs: Laboratory Results - last 24 hr 06/17/16 06/17/16 Range/Units 04:57 04:57 WBC 14.99 H (3.98-10.04) K/mm3 RBC 3.01 L (3.98-5.22) M/mm3 Hgb 9.0 L (11.2-15.7) gm/L Hct 27.0 L (34.1-44.9) % MCV 89.7 (79.4-94.8) fl MCH 29.9 (25.6-32.2) pg MCHC 33.3 (32.2-35.5) g/dl RDW Std Deviation 44.2 (36.4-46.3) fL Plt Count 104 L (182-369) K/mm3 MPV 10.1 (9.4-12.3) fl Neut % (Auto) 70.0 (34.0-71.1) % Lymph % (Auto) 23.0 (19.3-51.7) % [place] % (Auto) 6.5 (4.7-12.5) % Eos % (Auto) 0.1 L (0.7-5.8) Baso % (Auto) 0.1 (0.1-1.2) % Neut # (Auto) 10.49 H (1.56-6.13) K/mm3 Lymph # (Auto) 3.45 (1.18-3.74) K/mm3 [place] # (Auto) 0.98 H (0.24-0.36) K/mm3 Eos # (Auto) 0.01 L (0.04-0.36) K/mm3 Baso # (Auto) 0.01 (0.01-0.08) K/mm3 Sodium 133 L (136-145) mEq/L Potassium 3.7 (3.5-5.1) mEq/L Chloride 103 (98-107) mEq/L Carbon Dioxide 18 L (21-32) mEq/L Anion Gap 15.7 H (5-15) BUN 47 H (7-18) mg/dL Creatinine 1.9 H (0.55-1.02) mg/dL Est Cr Clr Drug Dosing 18.42 mL/min Estimated GFR (MDRD) 25 (>60) mL/min BUN/Creatinine Ratio 24.7 H (14-18) Glucose 90 (83-115) mg/dL Calcium 8.2 L (8.5-10.1) mg/dL Magnesium 1.6 L (1.8-2.4) mg/dl Mycoplasma pneumon IgM Negative (NEGATIVE) Med Orders - Current: Current Medications Albuterol/Ipratropium (Duoneb 3.0-0.5 Mg/3 Ml) 3 ml NEB QID PRN PRN Reason: Shortness of Breath Aspirin (Halfprin) 81 mg PO DAILY [facility] Last Admin: 06/17/16 09:08 Dose: 81 mg Heparin Sodium (Porcine) (Heparin Sodium) 5,000 units SUBCUT Q8H [facility] Last Admin: 06/17/16 09:16 Dose: 5,000 units Sodium Chloride (Normal Saline) 1,000 mls @ 75 mls/hr IV ASDIRECTED [facility] Last Admin: 06/17/16 06:42 Dose: 75 mls/hr Levofloxacin/Dextrose 750 mg/ (Premix) 150 mls @ 100 mls/hr IV Q48H [facility] Last Admin: 06/16/16 03:13 Dose: 100 mls/hr Levothyroxine Sodium (Levothyroxine) 25 mcg PO DAILY [facility] Last Admin: 06/17/16 09:08 Dose: 25 mcg Lorazepam (Ativan) 1.5 mg PO BEDTIME PRN PRN Reason: Insomnia Last Admin: 06/16/16 21:54 Dose: 1.5 mg Metoclopramide HCl (Reglan) 10 mg IVPUSH Q6H PRN PRN Reason: Nausea/Vomiting Mometasone Furoate/Formoterol Fumar (Dulera 100-5 Mcg) 0 puff IH BID [facility] Last Admin: 06/17/16 08:31 Dose: 2 puff Morphine Sulfate (Morphine) 1 mg SUBCUT Q2H PRN PRN Reason: Pain Last Admin: 06/16/16 04:10 Dose: 1 mg Ondansetron HCl (Zofran) 4 mg IVPUSH Q8H PRN PRN Reason: Nausea Pantoprazole Sodium (Protonix) 40 mg PO DAILY@0700 [facility] Last Admin: 06/17/16 06:42 Dose: 40 mg Discontinued Medications Fentanyl (Sublimaze) 25 mcg IVPUSH ONETIME ONE Stop: 06/15/16 21:35 Last Admin: 06/15/16 22:20 Dose: 25 mcg Heparin Sodium (Porcine) (Heparin Sodium) 5,000 units SUBCUT Q8H [facility] Last Admin: 06/16/16 03:22 Dose: Not Given Heparin Sodium (Porcine) (Heparin Sodium) Confirm Administered Dose 5,000 units .ROUTE .STK-MED ONE Stop: 06/16/16 03:01 Last Admin: 06/16/16 03:14 Dose: 5,000 units Hydromorphone HCl (Dilaudid) 0.25 mg IVPUSH ONETIME ONE Stop: 06/16/16 00:09 Last Admin: 06/16/16 00:12 Dose: 0.25 mg Sodium Chloride (Normal Saline) 1,000 mls @ 150 mls/hr IV ASDIRECTED [facility] Last Infusion: 06/16/16 00:35 Dose: 999 mls/hr Levofloxacin/Dextrose 750 mg/ (Premix) 150 mls @ 100 mls/hr IV Q24H [facility] Ondansetron HCl (Zofran) 4 mg IVPUSH ONETIME ONE Stop: 06/15/16 21:34 Last Admin: 06/15/16 22:20 Dose: 4 mg - Exam Quality Assessment: DVT prophylaxis General: alert, oriented (x1), no acute distress HEENT: Pupils equal, Pupils reactive Neck: supple, trachea midline, no JVD Lungs: Normal respiratory effort, Decreased breath sounds Cardiovascular: Regular Rate, Tachycardia Abdomen: bowel sounds present, soft, no tenderness, no distension (Female) Exam: Deferred Back Exam: normal inspection Extremities: normal pulses Wound/Incisions: healing well Neurological: no new focal deficit, normal gait, normal speech Psy/Mental Status: alert, normal affect, normal mood - Problem List & Annotations (1) Chronic renal insufficiency, stage IV (severe) SNOMED Code(s): 22077889 Code(s): N18.4 - CHRONIC KIDNEY DISEASE, STAGE 4 (SEVERE) Status: Acute Current Visit: Yes (2) Hyponatremia SNOMED Code(s): 87805889 Code(s): E87.1 - HYPO-OSMOLALITY AND HYPONATREMIA Status: Acute Current Visit: Yes (3) Pancreatic carcinoma SNOMED Code(s): 779311797 Code(s): C25.9 - MALIGNANT NEOPLASM OF PANCREAS, UNSPECIFIED Status: Acute Current Visit: Yes (4) Volume depletion SNOMED Code(s): 94040976 Code(s): E86.9 - VOLUME DEPLETION, UNSPECIFIED Status: Acute Current Visit: Yes - Problem List Review Problem List Initiated/Reviewed/Updated: Yes - My Orders Last 24 Hours: My Active Orders 06/16/16 10:00 Heparin Sodium 5,000 units SUBCUT Q8H 06/16/16 10:38 Consult to Speech Language Pathology [PUPPET DEVELOPER Evaluation and Treatment] [CONS] Routine 06/16/16 18:31 OT Evaluation and Treatment [CONS] Routine PT Evaluation and Treatment [CONS] Routine 06/16/16 20:29 STREP PNEUMONIAE ANTIGEN [MREF] Routine 06/16/16 20:30 LORazepam [Ativan] 1.5 mg PO BEDTIME PRN 06/16/16 20:32 Albuterol/Ipratropium [DuoNeb 3.0-0.5 MG/3 ML] 3 ml NEB QID PRN 06/16/16 20:33 RT Aerosol Therapy [RC] .PRN Metoclopramide [Reglan] 10 mg IVPUSH Q6H PRN 06/16/16 20:36 Antiembolic Devices [RC] PER UNIT ROUTINE GIRMA Hose [Antiembolic Hose] [OM.PC] Routine 06/16/16 20:45 Mometasone/Formoterol [Dulera 100-5 MCG] 0 puff IH BID 06/17/16 07:00 Pantoprazole [ProTONIX] 40 mg PO DAILY@0700 06/17/16 09:00 Aspirin [Halfprin] 81 mg PO DAILY Levothyroxine 25 mcg PO DAILY 06/18/16 05:00 BMP [BASIC METABOLIC PANEL,BMP] [CHEM] DAILY CBC WITH AUTO DIFF [HEME] DAILY MAGNESIUM [CHEM] DAILY 06/18/16 09:00 CXR [Chest 2V] [CR] Routine 06/19/16 05:00 BMP [BASIC METABOLIC PANEL,BMP] [CHEM] DAILY CBC WITH AUTO DIFF [HEME] DAILY MAGNESIUM [CHEM] DAILY - Plan Plan:: Impression: Severe Abdominal Pain with history of pancreatic cancer Dehydration AMS, resolved Leukocytosis RLL infiltrate CKD stage IV DNR/DNI Chronic CAD PPM HTN Hyperlipidemia GERD Hypothyroidism GERD Plan: NPO/advance diet as tolerated IVF Continue levoquin Nebs PT/OT/SW/CM DVT prophylaxis LOS may be >96 hours, will need SNF placement.
[2016-06-17] MEDS: Morphine 2 MG/ML Syringe SUBCUT PRN ×2 (13:23→17:05)
[2016-06-17] MEDS ORDERED: Haloperidol Lactate 5 MG/ML SDV IVPUSH ONE ×2 (14:12→18:26)
[2016-06-17] MEDS ORDERED: LORazepam 2 MG/ML MDV IVPUSH ONE (18:26)
[2016-06-17] MEDS ORDERED: Magnesium Sulfate/Water 2 GM in Premix Bag 1 BAG IV ONE (18:41)
[2016-06-18] MEDS: Heparin Sodium 5,000 Units/ML Vial SUBCUT SCH ×3 (01:38→18:00)
[2016-06-18] MEDS: Levofloxacin/Dextrose 5%-Water 750 MG in Premix Bag 1 BAG IV SCH (01:39)
[2016-06-18] MEDS: Morphine 2 MG/ML Syringe SUBCUT PRN (01:40)
[2016-06-18] MEDS: Pantoprazole 40 MG Tab.CR PO SCH (06:03)
[2016-06-18] MEDS ORDERED: Levofloxacin 750 MG Tab PO SCH (08:00)
[2016-06-18] MEDS: Levothyroxine 25 MCG Tab PO SCH (08:17)
[2016-06-18] MEDS: Aspirin 81 MG Tab.EC PO SCH (08:17)
[2016-06-18] MEDS: Formoterol/Mometasone 100-5 MCG 8.8 GM Inhaler IH SCH ×2 (08:41→20:21)
[2016-06-18] MEDS ORDERED: Levofloxacin/Dextrose 5%-Water 750 MG in Premix Bag 1 BAG IV SCH (09:00)
[2016-06-18] MEDS: Acetaminophen/HYDROcodone 325-5 MG Tab PO PRN ×2 (09:58→20:10)
--- NOTE | 2016-06-18 11:56 | CR ---
Chest: Two views of the chest were obtained. Comparison: Previous chest x-ray of 06/15/16 and 06/07/16. Left-sided pleural effusion and small right-sided pleural effusion appears to be present. Findings are fairly stable from prior study. Increased density within the right lung base is seen which appears stable. Mild increased density within the left mid and lower lung also noted and felt to be stable. No acute appearing infiltrates are definitely appreciated. Pacemaker is noted. Scoliosis and degenerative change is seen within the spine. Impression: 1. Stable chest x-ray from previous exam. Nothing acute is definitely appreciated. Diagnostic code #2
--- NOTE | 2016-06-18 13:38 | PCM.PN ---
- General Info Date of Service: 06/18/16 Subjective Update: Has had an episode of sundown, has returned to baseline established on admission. Functional Status: Reports: tolerating diet, ambulating, urinating - Review of Systems General: Reports: Fever, Malaise HEENT: Reports: no symptoms Pulmonary: Reports: no symptoms Cardiovascular: Reports: No Symptoms Gastrointestinal: Reports: No symptoms Genitourinary: Reports: no symptoms Musculoskeletal: Reports: no symptoms Skin: Reports: no symptoms Neurological: Reports: No Symptoms Psychiatric: Reports: no symptoms - Patient Data Vitals - most recent: Last Vital Signs Temp 36.4 C 06/18/16 08:20 Pulse 65 06/18/16 08:20 Resp 19 06/18/16 08:20 BP 103/44 L 06/18/16 08:21 Pulse Ox 95 06/18/16 08:41 Weight - most recent: 65.862 kg I&O - last 24 hours: Intake & Output 06/17/16 06/18/16 06/18/16 22:59 06:59 14:59 Intake Total 310 1398 120 Output Total 350 300 Balance -40 1098 120 Lab Results last 24 hrs: Laboratory Results - last 24 hr 06/18/16 06/18/16 Range/Units 05:31 05:31 WBC 13.65 H (3.98-10.04) K/mm3 RBC 3.48 L (3.98-5.22) M/mm3 Hgb 10.2 L (11.2-15.7) gm/L Hct 31.0 L (34.1-44.9) % MCV 89.1 (79.4-94.8) fl MCH 29.3 (25.6-32.2) pg MCHC 32.9 (32.2-35.5) g/dl RDW Std Deviation 44.9 (36.4-46.3) fL Plt Count 119 L (182-369) K/mm3 MPV 10.1 (9.4-12.3) fl Neut % (Auto) 65.7 (34.0-71.1) % Lymph % (Auto) 27.6 (19.3-51.7) % [place] % (Auto) 5.8 (4.7-12.5) % Eos % (Auto) 0.2 L (0.7-5.8) Baso % (Auto) 0.1 (0.1-1.2) % Neut # (Auto) 8.97 H (1.56-6.13) K/mm3 Lymph # (Auto) 3.77 H (1.18-3.74) K/mm3 [place] # (Auto) 0.79 H (0.24-0.36) K/mm3 Eos # (Auto) 0.03 L (0.04-0.36) K/mm3 Baso # (Auto) 0.01 (0.01-0.08) K/mm3 Sodium 134 L (136-145) mEq/L Potassium 3.8 (3.5-5.1) mEq/L Chloride 105 (98-107) mEq/L Carbon Dioxide 19 L (21-32) mEq/L Anion Gap 13.8 (5-15) BUN 41 H (7-18) mg/dL Creatinine 1.6 H (0.55-1.02) mg/dL Est Cr Clr Drug Dosing 21.87 mL/min Estimated GFR (MDRD) 30 (>60) mL/min BUN/Creatinine Ratio 25.6 H (14-18) Glucose 81 L (83-115) mg/dL Calcium 8.6 (8.5-10.1) mg/dL Magnesium 2.1 (1.8-2.4) mg/dl Med Orders - Current: Current Medications Hydrocodone Bitart/Acetaminophen ([place] 325-5 Mg) 1 tab PO Q6H PRN PRN Reason: Abdominal Pain Last Admin: 06/18/16 09:58 Dose: 1 tab Albuterol/Ipratropium (Duoneb 3.0-0.5 Mg/3 Ml) 3 ml NEB QID PRN PRN Reason: Shortness of Breath Aspirin (Halfprin) 81 mg PO DAILY [facility] Last Admin: 06/18/16 08:17 Dose: 81 mg Heparin Sodium (Porcine) (Heparin Sodium) 5,000 units SUBCUT Q8H [facility] Last Admin: 06/18/16 09:59 Dose: 5,000 units Levofloxacin (Levaquin) 750 mg PO Q48H [facility] Last Admin: 06/18/16 08:17 Dose: 750 mg Levothyroxine Sodium (Levothyroxine) 25 mcg PO DAILY [facility] Last Admin: 06/18/16 08:17 Dose: 25 mcg Lorazepam (Ativan) 1.5 mg PO BEDTIME PRN PRN Reason: Insomnia Last Admin: 06/16/16 21:54 Dose: 1.5 mg Metoclopramide HCl (Reglan) 10 mg IVPUSH Q6H PRN PRN Reason: Nausea/Vomiting Mometasone Furoate/Formoterol Fumar (Dulera 100-5 Mcg) 0 puff IH BID [facility] Last Admin: 06/18/16 08:41 Dose: 2 puff Morphine Sulfate (Morphine) 1 mg SUBCUT Q2H PRN PRN Reason: Pain Last Admin: 06/18/16 01:40 Dose: 1 mg Ondansetron HCl (Zofran) 4 mg IVPUSH Q8H PRN PRN Reason: Nausea Pantoprazole Sodium (Protonix) 40 mg PO DAILY@0700 [facility] Last Admin: 06/18/16 06:03 Dose: Not Given Senna/Docusate Sodium (Senna Plus) 1 tab PO BID PRN PRN Reason: Constipation Last Admin: 06/18/16 09:58 Dose: 1 tab Discontinued Medications Fentanyl (Sublimaze) 25 mcg IVPUSH ONETIME ONE Stop: 06/15/16 21:35 Last Admin: 06/15/16 22:20 Dose: 25 mcg Haloperidol Lactate (Haldol) 0.5 mg IVPUSH ONETIME ONE Stop: 06/17/16 14:13 Last Admin: 06/17/16 17:03 Dose: 0.5 mg Haloperidol Lactate (Haldol) 1 mg IVPUSH ONETIME ONE Stop: 06/17/16 18:27 Last Admin: 06/17/16 19:06 Dose: 1 mg Heparin Sodium (Porcine) (Heparin Sodium) 5,000 units SUBCUT Q8H [facility] Last Admin: 06/16/16 03:22 Dose: Not Given Heparin Sodium (Porcine) (Heparin Sodium) Confirm Administered Dose 5,000 units .ROUTE .STK-MED ONE Stop: 06/16/16 03:01 Last Admin: 06/16/16 03:14 Dose: 5,000 units Hydromorphone HCl (Dilaudid) 0.25 mg IVPUSH ONETIME ONE Stop: 06/16/16 00:09 Last Admin: 06/16/16 00:12 Dose: 0.25 mg Sodium Chloride (Normal Saline) 1,000 mls @ 150 mls/hr IV ASDIRECTED [facility] Last Infusion: 06/16/16 00:35 Dose: 999 mls/hr Sodium Chloride (Normal Saline) 1,000 mls @ 75 mls/hr IV ASDIRECTED [facility] Last Admin: 06/17/16 21:02 Dose: 75 mls/hr Levofloxacin/Dextrose 750 mg/ (Premix) 150 mls @ 100 mls/hr IV Q48H [facility] Last Admin: 06/18/16 01:39 Dose: 100 mls/hr Levofloxacin/Dextrose 750 mg/ (Premix) 150 mls @ 100 mls/hr IV Q24H [facility] Magnesium Sulfate 2 gm/ Premix 50 mls @ 25 mls/hr IV ONETIME ONE Stop: 06/17/16 20:40 Last Admin: 06/17/16 19:11 Dose: 25 mls/hr Lorazepam (Ativan) 0.5 mg IVPUSH ONETIME ONE Stop: 06/17/16 18:27 Last Admin: 06/17/16 19:09 Dose: 0.5 mg Ondansetron HCl (Zofran) 4 mg IVPUSH ONETIME ONE Stop: 06/15/16 21:34 Last Admin: 06/15/16 22:20 Dose: 4 mg - Exam Quality Assessment: DVT prophylaxis General: alert, oriented, cooperative, no acute distress HEENT: Pupils equal, Pupils reactive, EOMI Lungs: Normal respiratory effort Cardiovascular: Regular Rate, Tachycardia Abdomen: bowel sounds present, soft, no tenderness, no distension (Female) Exam: Deferred Back Exam: normal inspection Extremities: normal pulses Skin: warm Neurological: no new focal deficit, normal speech Psy/Mental Status: alert, normal affect, normal mood - Problem List & Annotations (1) Chronic renal insufficiency, stage IV (severe) SNOMED Code(s): 63663147 Code(s): N18.4 - CHRONIC KIDNEY DISEASE, STAGE 4 (SEVERE) Status: Acute Current Visit: Yes (2) Hyponatremia SNOMED Code(s): 39018281 Code(s): E87.1 - HYPO-OSMOLALITY AND HYPONATREMIA Status: Acute Current Visit: Yes (3) Pancreatic carcinoma SNOMED Code(s): 043156708 Code(s): C25.9 - MALIGNANT NEOPLASM OF PANCREAS, UNSPECIFIED Status: Acute Current Visit: Yes (4) Volume depletion SNOMED Code(s): 24077898 Code(s): E86.9 - VOLUME DEPLETION, UNSPECIFIED Status: Acute Current Visit: Yes - Problem List Review Problem List Initiated/Reviewed/Updated: Yes - My Orders Last 24 Hours: My Active Orders 02/09/17 06:00 Abdominal Girth Measurement [OM.PC] QSHIFT 02/10/17 06:00 Abdominal Girth Measurement [OM.PC] QSHIFT 02/11/17 06:00 Abdominal Girth Measurement [OM.PC] QSHIFT 02/12/17 06:00 Abdominal Girth Measurement [OM.PC] QSHIFT 02/13/17 06:00 Abdominal Girth Measurement [OM.PC] QSHIFT 02/14/17 06:00 Abdominal Girth Measurement [OM.PC] QSHIFT 02/15/17 06:00 Abdominal Girth Measurement [OM.PC] QSHIFT 02/16/17 06:00 Abdominal Girth Measurement [OM.PC] QSHIFT 02/17/17 06:00 Abdominal Girth Measurement [OM.PC] QSHIFT 02/18/17 06:00 Abdominal Girth Measurement [OM.PC] QSHIFT 02/19/17 06:00 Abdominal Girth Measurement [OM.PC] QSHIFT 02/20/17 06:00 Abdominal Girth Measurement [OM.PC] QSHIFT 02/21/17 06:00 Abdominal Girth Measurement [OM.PC] QSHIFT 02/22/17 06:00 Abdominal Girth Measurement [OM.PC] QSHIFT 02/23/17 06:00 Abdominal Girth Measurement [OM.PC] QSHIFT 02/24/17 06:00 Abdominal Girth Measurement [OM.PC] QSHIFT 02/25/17 06:00 Abdominal Girth Measurement [OM.PC] QSHIFT 02/26/17 06:00 Abdominal Girth Measurement [OM.PC] QSHIFT 02/27/17 06:00 Abdominal Girth Measurement [OM.PC] QSHIFT 02/28/17 06:00 Abdominal Girth Measurement [OM.PC] QSHIFT 03/01/17 06:00 Abdominal Girth Measurement [OM.PC] QSHIFT 03/02/17 06:00 Abdominal Girth Measurement [OM.PC] QSHIFT 03/03/17 06:00 Abdominal Girth Measurement [OM.PC] QSHIFT 03/04/17 06:00 Abdominal Girth Measurement [OM.PC] QSHIFT 03/05/17 06:00 Abdominal Girth Measurement [OM.PC] QSHIFT 03/06/17 06:00 Abdominal Girth Measurement [OM.PC] QSHIFT 03/07/17 06:00 Abdominal Girth Measurement [OM.PC] QSHIFT 03/08/17 06:00 Abdominal Girth Measurement [OM.PC] QSHIFT 03/09/17 06:00 Abdominal Girth Measurement [OM.PC] QSHIFT 03/10/17 06:00 Abdominal Girth Measurement [OM.PC] QSHIFT 03/11/17 06:00 Abdominal Girth Measurement [OM.PC] QSHIFT 03/12/17 06:00 Abdominal Girth Measurement [OM.PC] QSHIFT 03/13/17 06:00 Abdominal Girth Measurement [OM.PC] QSHIFT 03/14/17 06:00 Abdominal Girth Measurement [OM.PC] QSHIFT 03/15/17 06:00 Abdominal Girth Measurement [OM.PC] QSHIFT 03/16/17 06:00 Abdominal Girth Measurement [OM.PC] QSHIFT 03/17/17 06:00 Abdominal Girth Measurement [OM.PC] QSHIFT 03/18/17 06:00 Abdominal Girth Measurement [OM.PC] QSHIFT 03/19/17 06:00 Abdominal Girth Measurement [OM.PC] QSHIFT 03/20/17 06:00 Abdominal Girth Measurement [OM.PC] QSHIFT 03/21/17 06:00 Abdominal Girth Measurement [OM.PC] QSHIFT 03/22/17 06:00 Abdominal Girth Measurement [OM.PC] QSHIFT 03/23/17 06:00 Abdominal Girth Measurement [OM.PC] QSHIFT 03/24/17 06:00 Abdominal Girth Measurement [OM.PC] QSHIFT 03/25/17 06:00 Abdominal Girth Measurement [OM.PC] QSHIFT 03/26/17 06:00 Abdominal Girth Measurement [OM.PC] QSHIFT 03/27/17 06:00 Abdominal Girth Measurement [OM.PC] QSHIFT 03/28/17 06:00 Abdominal Girth Measurement [OM.PC] QSHIFT 03/29/17 06:00 Abdominal Girth Measurement [OM.PC] QSHIFT 03/30/17 06:00 Abdominal Girth Measurement [OM.PC] QSHIFT 03/31/17 06:00 Abdominal Girth Measurement [OM.PC] QSHIFT 04/01/17 06:00 Abdominal Girth Measurement [OM.PC] QSHIFT 04/02/17 06:00 Abdominal Girth Measurement [OM.PC] QSHIFT 04/03/17 06:00 Abdominal Girth Measurement [OM.PC] QSHIFT 04/04/17 06:00 Abdominal Girth Measurement [OM.PC] QSHIFT 04/05/17 06:00 Abdominal Girth Measurement [OM.PC] QSHIFT 04/06/17 06:00 Abdominal Girth Measurement [OM.PC] QSHIFT 04/07/17 06:00 Abdominal Girth Measurement [OM.PC] QSHIFT 04/08/17 06:00 Abdominal Girth Measurement [OM.PC] QSHIFT 04/09/17 06:00 Abdominal Girth Measurement [OM.PC] QSHIFT 04/10/17 06:00 Abdominal Girth Measurement [OM.PC] QSHIFT 04/11/17 06:00 Abdominal Girth Measurement [OM.PC] QSHIFT 04/12/17 06:00 Abdominal Girth Measurement [OM.PC] QSHIFT 04/13/17 06:00 Abdominal Girth Measurement [OM.PC] QSHIFT 04/14/17 06:00 Abdominal Girth Measurement [OM.PC] QSHIFT 04/15/17 06:00 Abdominal Girth Measurement [OM.PC] QSHIFT 04/16/17 06:00 Abdominal Girth Measurement [OM.PC] QSHIFT 04/17/17 06:00 Abdominal Girth Measurement [OM.PC] QSHIFT 04/18/17 06:00 Abdominal Girth Measurement [OM.PC] QSHIFT 04/19/17 06:00 Abdominal Girth Measurement [OM.PC] QSHIFT 04/20/17 06:00 Abdominal Girth Measurement [OM.PC] QSHIFT 04/21/17 06:00 Abdominal Girth Measurement [OM.PC] QSHIFT 04/22/17 06:00 Abdominal Girth Measurement [OM.PC] QSHIFT 04/23/17 06:00 Abdominal Girth Measurement [OM.PC] QSHIFT 04/24/17 06:00 Abdominal Girth Measurement [OM.PC] QSHIFT 04/25/17 06:00 Abdominal Girth Measurement [OM.PC] QSHIFT 04/26/17 06:00 Abdominal Girth Measurement [OM.PC] QSHIFT 04/27/17 06:00 Abdominal Girth Measurement [OM.PC] QSHIFT 04/28/17 06:00 Abdominal Girth Measurement [OM.PC] QSHIFT 04/29/17 06:00 Abdominal Girth Measurement [OM.PC] QSHIFT 04/30/17 06:00 Abdominal Girth Measurement [OM.PC] QSHIFT 05/01/17 06:00 Abdominal Girth Measurement [OM.PC] QSHIFT 05/02/17 06:00 Abdominal Girth Measurement [OM.PC] QSHIFT 05/03/17 06:00 Abdominal Girth Measurement [OM.PC] QSHIFT 05/04/17 06:00 Abdominal Girth Measurement [OM.PC] QSHIFT 05/05/17 06:00 Abdominal Girth Measurement [OM.PC] QSHIFT 05/06/17 06:00 Abdominal Girth Measurement [OM.PC] QSHIFT 05/07/17 06:00 Abdominal Girth Measurement [OM.PC] QSHIFT 05/08/17 06:00 Abdominal Girth Measurement [OM.PC] QSHIFT 05/09/17 06:00 Abdominal Girth Measurement [OM.PC] QSHIFT 05/10/17 06:00 Abdominal Girth Measurement [OM.PC] QSHIFT 05/11/17 06:00 Abdominal Girth Measurement [OM.PC] QSHIFT 05/12/17 06:00 Abdominal Girth Measurement [OM.PC] QSHIFT 05/13/17 06:00 Abdominal Girth Measurement [OM.PC] QSHIFT 05/14/17 06:00 Abdominal Girth Measurement [OM.PC] QSHIFT 05/15/17 06:00 Abdominal Girth Measurement [OM.PC] QSHIFT 05/16/17 06:00 Abdominal Girth Measurement [OM.PC] QSHIFT 05/17/17 06:00 Abdominal Girth Measurement [OM.PC] QSHIFT 05/18/17 06:00 Abdominal Girth Measurement [OM.PC] QSHIFT 05/19/17 06:00 Abdominal Girth Measurement [OM.PC] QSHIFT 05/20/17 06:00 Abdominal Girth Measurement [OM.PC] QSHIFT 05/21/17 06:00 Abdominal Girth Measurement [OM.PC] QSHIFT 05/22/17 06:00 Abdominal Girth Measurement [OM.PC] QSHIFT 05/23/17 06:00 Abdominal Girth Measurement [OM.PC] QSHIFT 05/24/17 06:00 Abdominal Girth Measurement [OM.PC] QSHIFT 05/25/17 06:00 Abdominal Girth Measurement [OM.PC] QSHIFT 05/26/17 06:00 Abdominal Girth Measurement [OM.PC] QSHIFT 05/27/17 06:00 Abdominal Girth Measurement [OM.PC] QSHIFT 05/28/17 06:00 Abdominal Girth Measurement [OM.PC] QSHIFT 05/29/17 06:00 Abdominal Girth Measurement [OM.PC] QSHIFT 05/30/17 06:00 Abdominal Girth Measurement [OM.PC] QSHIFT 05/31/17 06:00 Abdominal Girth Measurement [OM.PC] QSHIFT 06/01/17 06:00 Abdominal Girth Measurement [OM.PC] QSHIFT 06/02/17 06:00 Abdominal Girth Measurement [OM.PC] QSHIFT 06/03/17 06:00 Abdominal Girth Measurement [OM.PC] QSHIFT 06/04/17 06:00 Abdominal Girth Measurement [OM.PC] QSHIFT 06/05/17 06:00 Abdominal Girth Measurement [OM.PC] QSHIFT 06/06/17 06:00 Abdominal Girth Measurement [OM.PC] QSHIFT 06/07/17 06:00 Abdominal Girth Measurement [OM.PC] QSHIFT 06/08/17 06:00 Abdominal Girth Measurement [OM.PC] QSHIFT 06/09/17 06:00 Abdominal Girth Measurement [OM.PC] QSHIFT 06/10/17 06:00 Abdominal Girth Measurement [OM.PC] QSHIFT 06/11/17 06:00 Abdominal Girth Measurement [OM.PC] QSHIFT 06/12/17 06:00 Abdominal Girth Measurement [OM.PC] QSHIFT 06/13/17 06:00 Abdominal Girth Measurement [OM.PC] QSHIFT 06/14/17 06:00 Abdominal Girth Measurement [OM.PC] QSHIFT 06/15/17 06:00 Abdominal Girth Measurement [OM.PC] QSHIFT 06/16/17 06:00 Abdominal Girth Measurement [OM.PC] QSHIFT 06/17/16 19:00 STREP PNEUMONIAE ANTIGEN [MREF] Routine 06/17/16 21:21 Up With Assistance [RC] ASDIRECTED 06/17/17 06:00 Abdominal Girth Measurement [OM.PC] QSHIFT 06/18/16 06:00 Abdominal Girth Measurement [OM.PC] QSHIFT 06/18/16 09:38 Acetaminophen/HYDROcodone [[place] 325-5 MG] 1 tab PO Q6H PRN 06/18/16 09:42 Docusate Sodium/Sennosides [Senna Plus] 1 tab PO BID PRN 06/18/17 06:00 Abdominal Girth Measurement [OM.PC] QSNCFT 06/19/16 05:00 BMP [BASIC METABOLIC PANEL,BMP] [CHEM] DAILY CBC WITH AUTO DIFF [HEME] DAILY MAGNESIUM [CHEM] DAILY 06/19/16 06:00 Abdominal Girth Measurement [OM.PC] QSHIFT 06/19/17 06:00 Abdominal Girth Measurement [OM.PC] QSHIFT 06/20/16 06:00 Abdominal Girth Measurement [OM.PC] QSHIFT 06/20/17 06:00 Abdominal Girth Measurement [OM.PC] QSHIFT 06/21/16 06:00 Abdominal Girth Measurement [OM.PC] QSHIFT 06/21/17 06:00 Abdominal Girth Measurement [OM.PC] QSHIFT 06/22/16 06:00 Abdominal Girth Measurement [OM.PC] QSHIFT 06/22/17 06:00 Abdominal Girth Measurement [OM.PC] QSHIFT 06/23/16 06:00 Abdominal Girth Measurement [OM.PC] QSHIFT 06/23/17 06:00 Abdominal Girth Measurement [OM.PC] QSHIFT 06/24/16 06:00 Abdominal Girth Measurement [OM.PC] QSHIFT 06/24/17 06:00 Abdominal Girth Measurement [OM.PC] QSHIFT 06/25/16 06:00 Abdominal Girth Measurement [OM.PC] QSHIFT 06/25/17 06:00 Abdominal Girth Measurement [OM.PC] QSHIFT 06/26/16 06:00 Abdominal Girth Measurement [OM.PC] QSHIFT 06/26/17 06:00 Abdominal Girth Measurement [OM.PC] QSHIFT 06/27/16 06:00 Abdominal Girth Measurement [OM.PC] QSHIFT 06/27/17 06:00 Abdominal Girth Measurement [OM.PC] QSHIFT 06/28/16 06:00 Abdominal Girth Measurement [OM.PC] QSHIFT 06/28/17 06:00 Abdominal Girth Measurement [OM.PC] QSHIFT 06/29/16 06:00 Abdominal Girth Measurement [OM.PC] QSHIFT 06/29/17 06:00 Abdominal Girth Measurement [OM.PC] QSHIFT 06/30/16 06:00 Abdominal Girth Measurement [OM.PC] QSHIFT 06/30/17 06:00 Abdominal Girth Measurement [OM.PC] QSHIFT 07/01/16 06:00 Abdominal Girth Measurement [OM.PC] QSHIFT 07/01/17 06:00 Abdominal Girth Measurement [OM.PC] QSHIFT 07/02/16 06:00 Abdominal Girth Measurement [OM.PC] QSHIFT 07/02/17 06:00 Abdominal Girth Measurement [OM.PC] QSHIFT 07/03/16 06:00 Abdominal Girth Measurement [OM.PC] QSHIFT 07/03/17 06:00 Abdominal Girth Measurement [OM.PC] QSHIFT 07/04/16 06:00 Abdominal Girth Measurement [OM.PC] QSHIFT 07/04/17 06:00 Abdominal Girth Measurement [OM.PC] QSHIFT 07/05/16 06:00 Abdominal Girth Measurement [OM.PC] QSHIFT 07/05/17 06:00 Abdominal Girth Measurement [OM.PC] QSHIFT 07/06/16 06:00 Abdominal Girth Measurement [OM.PC] QSHIFT 07/06/17 06:00 Abdominal Girth Measurement [OM.PC] QSHIFT 07/07/16 06:00 Abdominal Girth Measurement [OM.PC] QSHIFT 07/07/17 06:00 Abdominal Girth Measurement [OM.PC] QSHIFT 07/08/16 06:00 Abdominal Girth Measurement [OM.PC] QSHIFT 07/08/17 06:00 Abdominal Girth Measurement [OM.PC] QSHIFT 07/09/16 06:00 Abdominal Girth Measurement [OM.PC] QSHIFT 07/09/17 06:00 Abdominal Girth Measurement [OM.PC] QSHIFT 07/10/16 06:00 Abdominal Girth Measurement [OM.PC] QSHIFT 07/10/17 06:00 Abdominal Girth Measurement [OM.PC] QSHIFT 07/11/16 06:00 Abdominal Girth Measurement [OM.PC] QSHIFT 07/11/17 06:00 Abdominal Girth Measurement [OM.PC] QSHIFT 07/12/16 06:00 Abdominal Girth Measurement [OM.PC] QSHIFT 07/12/17 06:00 Abdominal Girth Measurement [OM.PC] QSHIFT 07/13/16 06:00 Abdominal Girth Measurement [OM.PC] QSHIFT 07/13/17 06:00 Abdominal Girth Measurement [OM.PC] QSHIFT 07/14/16 06:00 Abdominal Girth Measurement [OM.PC] QSHIFT 07/14/17 06:00 Abdominal Girth Measurement [OM.PC] QSHIFT 07/15/16 06:00 Abdominal Girth Measurement [OM.PC] QSHIFT 07/15/17 06:00 Abdominal Girth Measurement [OM.PC] QSHIFT 07/16/16 06:00 Abdominal Girth Measurement [OM.PC] QSHIFT 07/16/17 06:00 Abdominal Girth Measurement [OM.PC] QSHIFT 07/17/16 06:00 Abdominal Girth Measurement [OM.PC] QSHIFT 07/17/17 06:00 Abdominal Girth Measurement [OM.PC] QSHIFT 07/18/16 06:00 Abdominal Girth Measurement [OM.PC] QSHIFT 07/18/17 06:00 Abdominal Girth Measurement [OM.PC] QSHIFT 07/19/16 06:00 Abdominal Girth Measurement [OM.PC] QSHIFT 07/19/17 06:00 Abdominal Girth Measurement [OM.PC] QSHIFT 07/20/16 06:00 Abdominal Girth Measurement [OM.PC] QSHIFT 07/20/17 06:00 Abdominal Girth Measurement [OM.PC] QSHIFT 07/21/16 06:00 Abdominal Girth Measurement [OM.PC] QSHIFT 07/21/17 06:00 Abdominal Girth Measurement [OM.PC] QSHIFT 07/22/16 06:00 Abdominal Girth Measurement [OM.PC] QSHIFT 07/22/17 06:00 Abdominal Girth Measurement [OM.PC] QSHIFT 07/23/16 06:00 Abdominal Girth Measurement [OM.PC] QSHIFT 07/23/17 06:00 Abdominal Girth Measurement [OM.PC] QSHIFT 07/24/16 06:00 Abdominal Girth Measurement [OM.PC] QSHIFT 07/24/17 06:00 Abdominal Girth Measurement [OM.PC] QSHIFT 07/25/16 06:00 Abdominal Girth Measurement [OM.PC] QSHIFT 07/25/17 06:00 Abdominal Girth Measurement [OM.PC] QSHIFT 07/26/16 06:00 Abdominal Girth Measurement [OM.PC] QSHIFT 07/26/17 06:00 Abdominal Girth Measurement [OM.PC] QSHIFT 07/27/16 06:00 Abdominal Girth Measurement [OM.PC] QSHIFT 07/27/17 06:00 Abdominal Girth Measurement [OM.PC] QSHIFT 07/28/16 06:00 Abdominal Girth Measurement [OM.PC] QSHIFT 07/28/17 06:00 Abdominal Girth Measurement [OM.PC] QSHIFT 07/29/16 06:00 Abdominal Girth Measurement [OM.PC] QSHIFT 07/29/17 06:00 Abdominal Girth Measurement [OM.PC] QSHIFT 07/30/16 06:00 Abdominal Girth Measurement [OM.PC] QSHIFT 07/30/17 06:00 Abdominal Girth Measurement [OM.PC] QSHIFT 07/31/16 06:00 Abdominal Girth Measurement [OM.PC] QSHIFT 07/31/17 06:00 Abdominal Girth Measurement [OM.PC] QSHIFT 08/01/16 06:00 Abdominal Girth Measurement [OM.PC] QSHIFT 08/01/17 06:00 Abdominal Girth Measurement [OM.PC] QSHIFT 08/02/16 06:00 Abdominal Girth Measurement [OM.PC] QSHIFT 08/02/17 06:00 Abdominal Girth Measurement [OM.PC] QSHIFT 08/03/16 06:00 Abdominal Girth Measurement [OM.PC] QSHIFT 08/03/17 06:00 Abdominal Girth Measurement [OM.PC] QSHIFT 08/04/16 06:00 Abdominal Girth Measurement [OM.PC] QSHIFT 08/04/17 06:00 Abdominal Girth Measurement [OM.PC] QSHIFT 08/05/16 06:00 Abdominal Girth Measurement [OM.PC] QSHIFT 08/05/17 06:00 Abdominal Girth Measurement [OM.PC] QSHIFT 08/06/16 06:00 Abdominal Girth Measurement [OM.PC] QSHIFT 08/06/17 06:00 Abdominal Girth Measurement [OM.PC] QSHIFT 08/07/16 06:00 Abdominal Girth Measurement [OM.PC] QSHIFT 08/07/17 06:00 Abdominal Girth Measurement [OM.PC] QSHIFT 08/08/16 06:00 Abdominal Girth Measurement [OM.PC] QSHIFT 08/08/17 06:00 Abdominal Girth Measurement [OM.PC] QSHIFT 08/09/16 06:00 Abdominal Girth Measurement [OM.PC] QSHIFT 08/10/16 06:00 Abdominal Girth Measurement [OM.PC] QSHIFT 08/11/16 06:00 Abdominal Girth Measurement [OM.PC] QSHIFT 08/12/16 06:00 Abdominal Girth Measurement [OM.PC] QSHIFT 08/13/16 06:00 Abdominal Girth Measurement [OM.PC] QSHIFT 08/14/16 06:00 Abdominal Girth Measurement [OM.PC] QSHIFT 08/15/16 06:00 Abdominal Girth Measurement [OM.PC] QSHIFT 08/16/16 06:00 Abdominal Girth Measurement [OM.PC] QSHIFT 08/17/16 06:00 Abdominal Girth Measurement [OM.PC] QSHIFT 08/18/16 06:00 Abdominal Girth Measurement [OM.PC] QSHIFT 08/19/16 06:00 Abdominal Girth Measurement [OM.PC] QSHIFT 08/20/16 06:00 Abdominal Girth Measurement [OM.PC] QSHIFT 08/21/16 06:00 Abdominal Girth Measurement [OM.PC] QSHIFT 08/22/16 06:00 Abdominal Girth Measurement [OM.PC] QSHIFT 08/23/16 06:00 Abdominal Girth Measurement [OM.PC] QSHIFT 08/24/16 06:00 Abdominal Girth Measurement [OM.PC] QSHIFT 08/25/16 06:00 Abdominal Girth Measurement [OM.PC] QSHIFT 08/26/16 06:00 Abdominal Girth Measurement [OM.PC] QSHIFT 08/27/16 06:00 Abdominal Girth Measurement [OM.PC] QSHIFT 08/28/16 06:00 Abdominal Girth Measurement [OM.PC] QSHIFT 08/29/16 06:00 Abdominal Girth Measurement [OM.PC] QSHIFT 08/30/16 06:00 Abdominal Girth Measurement [OM.PC] QSHIFT 08/31/16 06:00 Abdominal Girth Measurement [OM.PC] QSHIFT 09/01/16 06:00 Abdominal Girth Measurement [OM.PC] QSHIFT 09/02/16 06:00 Abdominal Girth Measurement [OM.PC] QSHIFT 09/03/16 06:00 Abdominal Girth Measurement [OM.PC] QSHIFT 09/04/16 06:00 Abdominal Girth Measurement [OM.PC] QSHIFT 09/05/16 06:00 Abdominal Girth Measurement [OM.PC] QSHIFT 09/06/16 06:00 Abdominal Girth Measurement [OM.PC] QSHIFT 09/07/16 06:00 Abdominal Girth Measurement [OM.PC] QSHIFT 09/08/16 06:00 Abdominal Girth Measurement [OM.PC] QSHIFT 09/09/16 06:00 Abdominal Girth Measurement [OM.PC] QSHIFT 09/10/16 06:00 Abdominal Girth Measurement [OM.PC] QSHIFT 09/11/16 06:00 Abdominal Girth Measurement [OM.PC] QSHIFT 09/12/16 06:00 Abdominal Girth Measurement [OM.PC] QSHIFT 09/13/16 06:00 Abdominal Girth Measurement [OM.PC] QSHIFT 09/14/16 06:00 Abdominal Girth Measurement [OM.PC] QSHIFT 09/15/16 06:00 Abdominal Girth Measurement [OM.PC] QSHIFT 09/16/16 06:00 Abdominal Girth Measurement [OM.PC] QSHIFT 09/17/16 06:00 Abdominal Girth Measurement [OM.PC] QSHIFT 09/18/16 06:00 Abdominal Girth Measurement [OM.PC] QSHIFT 09/19/16 06:00 Abdominal Girth Measurement [OM.PC] QSHIFT 09/20/16 06:00 Abdominal Girth Measurement [OM.PC] QSHIFT 09/21/16 06:00 Abdominal Girth Measurement [OM.PC] QSHIFT 09/22/16 06:00 Abdominal Girth Measurement [OM.PC] QSHIFT 09/23/16 06:00 Abdominal Girth Measurement [OM.PC] QSHIFT 09/24/16 06:00 Abdominal Girth Measurement [OM.PC] QSHIFT 09/25/16 06:00 Abdominal Girth Measurement [OM.PC] QSHIFT 09/26/16 06:00 Abdominal Girth Measurement [OM.PC] QSHIFT 09/27/16 06:00 Abdominal Girth Measurement [OM.PC] QSHIFT 09/28/16 06:00 Abdominal Girth Measurement [OM.PC] QSHIFT 09/29/16 06:00 Abdominal Girth Measurement [OM.PC] QSHIFT 09/30/16 06:00 Abdominal Girth Measurement [OM.PC] QSHIFT 10/01/16 06:00 Abdominal Girth Measurement [OM.PC] QSHIFT 10/02/16 06:00 Abdominal Girth Measurement [OM.PC] QSHIFT 10/03/16 06:00 Abdominal Girth Measurement [OM.PC] QSHIFT 10/04/16 06:00 Abdominal Girth Measurement [OM.PC] QSHIFT 10/05/16 06:00 Abdominal Girth Measurement [OM.PC] QSHIFT 10/06/16 06:00 Abdominal Girth Measurement [OM.PC] QSHIFT 10/07/16 06:00 Abdominal Girth Measurement [OM.PC] QSHIFT 10/08/16 06:00 Abdominal Girth Measurement [OM.PC] QSHIFT 10/09/16 06:00 Abdominal Girth Measurement [OM.PC] QSHIFT 10/10/16 06:00 Abdominal Girth Measurement [OM.PC] QSHIFT 10/11/16 06:00 Abdominal Girth Measurement [OM.PC] QSHIFT 10/12/16 06:00 Abdominal Girth Measurement [OM.PC] QSHIFT 10/13/16 06:00 Abdominal Girth Measurement [OM.PC] QSHIFT 10/14/16 06:00 Abdominal Girth Measurement [OM.PC] QSHIFT 10/15/16 06:00 Abdominal Girth Measurement [OM.PC] QSHIFT 10/16/16 06:00 Abdominal Girth Measurement [OM.PC] QSHIFT 10/17/16 06:00 Abdominal Girth Measurement [OM.PC] QSHIFT 10/18/16 06:00 Abdominal Girth Measurement [OM.PC] QSHIFT 10/19/16 06:00 Abdominal Girth Measurement [OM.PC] QSHIFT 10/20/16 06:00 Abdominal Girth Measurement [OM.PC] QSHIFT 10/21/16 06:00 Abdominal Girth Measurement [OM.PC] QSHIFT 10/22/16 06:00 Abdominal Girth Measurement [OM.PC] QSHIFT 10/23/16 06:00 Abdominal Girth Measurement [OM.PC] QSHIFT 10/24/16 06:00 Abdominal Girth Measurement [OM.PC] QSHIFT 10/25/16 06:00 Abdominal Girth Measurement [OM.PC] QSHIFT 10/26/16 06:00 Abdominal Girth Measurement [OM.PC] QSHIFT 10/27/16 06:00 Abdominal Girth Measurement [OM.PC] QSHIFT 10/28/16 06:00 Abdominal Girth Measurement [OM.PC] QSHIFT 10/29/16 06:00 Abdominal Girth Measurement [OM.PC] QSHIFT 10/30/16 06:00 Abdominal Girth Measurement [OM.PC] QSHIFT 10/31/16 06:00 Abdominal Girth Measurement [OM.PC] QSHIFT 11/01/16 06:00 Abdominal Girth Measurement [OM.PC] QSHIFT 11/02/16 06:00 Abdominal Girth Measurement [OM.PC] QSHIFT 11/03/16 06:00 Abdominal Girth Measurement [OM.PC] QSHIFT 11/04/16 06:00 Abdominal Girth Measurement [OM.PC] QSHIFT 11/05/16 06:00 Abdominal Girth Measurement [OM.PC] QSHIFT 11/06/16 06:00 Abdominal Girth Measurement [OM.PC] QSHIFT 11/07/16 06:00 Abdominal Girth Measurement [OM.PC] QSHIFT 11/08/16 06:00 Abdominal Girth Measurement [OM.PC] QSHIFT 11/09/16 06:00 Abdominal Girth Measurement [OM.PC] QSHIFT 11/10/16 06:00 Abdominal Girth Measurement [OM.PC] QSHIFT 11/11/16 06:00 Abdominal Girth Measurement [OM.PC] QSHIFT 11/12/16 06:00 Abdominal Girth Measurement [OM.PC] QSHIFT 11/13/16 06:00 Abdominal Girth Measurement [OM.PC] QSHIFT 11/14/16 06:00 Abdominal Girth Measurement [OM.PC] QSHIFT 11/15/16 06:00 Abdominal Girth Measurement [OM.PC] QSHIFT 11/16/16 06:00 Abdominal Girth Measurement [OM.PC] QSHIFT 11/17/16 06:00 Abdominal Girth Measurement [OM.PC] QSHIFT 11/18/16 06:00 Abdominal Girth Measurement [OM.PC] QSHIFT 11/19/16 06:00 Abdominal Girth Measurement [OM.PC] QSHIFT 11/20/16 06:00 Abdominal Girth Measurement [OM.PC] QSHIFT 11/21/16 06:00 Abdominal Girth Measurement [OM.PC] QSHIFT 11/22/16 06:00 Abdominal Girth Measurement [OM.PC] QSHIFT 11/23/16 06:00 Abdominal Girth Measurement [OM.PC] QSHIFT 11/24/16 06:00 Abdominal Girth Measurement [OM.PC] QSHIFT 11/25/16 06:00 Abdominal Girth Measurement [OM.PC] QSHIFT 11/26/16 06:00 Abdominal Girth Measurement [OM.PC] QSHIFT 11/27/16 06:00 Abdominal Girth Measurement [OM.PC] QSHIFT 11/28/16 06:00 Abdominal Girth Measurement [OM.PC] QSHIFT 11/29/16 06:00 Abdominal Girth Measurement [OM.PC] QSHIFT 11/30/16 06:00 Abdominal Girth Measurement [OM.PC] QSHIFT 12/01/16 06:00 Abdominal Girth Measurement [OM.PC] QSHIFT 12/02/16 06:00 Abdominal Girth Measurement [OM.PC] QSHIFT 12/03/16 06:00 Abdominal Girth Measurement [OM.PC] QSHIFT 12/04/16 06:00 Abdominal Girth Measurement [OM.PC] QSHIFT 12/05/16 06:00 Abdominal Girth Measurement [OM.PC] QSHIFT 12/06/16 06:00 Abdominal Girth Measurement [OM.PC] QSHIFT 12/07/16 06:00 Abdominal Girth Measurement [OM.PC] QSHIFT 12/08/16 06:00 Abdominal Girth Measurement [OM.PC] QSHIFT 12/09/16 06:00 Abdominal Girth Measurement [OM.PC] QSHIFT 12/10/16 06:00 Abdominal Girth Measurement [OM.PC] QSHIFT 12/11/16 06:00 Abdominal Girth Measurement [OM.PC] QSHIFT 12/12/16 06:00 Abdominal Girth Measurement [OM.PC] QSHIFT 12/13/16 06:00 Abdominal Girth Measurement [OM.PC] QSHIFT 12/14/16 06:00 Abdominal Girth Measurement [OM.PC] QSHIFT 12/15/16 06:00 Abdominal Girth Measurement [OM.PC] QSHIFT 12/16/16 06:00 Abdominal Girth Measurement [OM.PC] QSHIFT 12/17/16 06:00 Abdominal Girth Measurement [OM.PC] QSHIFT 12/18/16 06:00 Abdominal Girth Measurement [OM.PC] QSHIFT 12/19/16 06:00 Abdominal Girth Measurement [OM.PC] QSHIFT 12/20/16 06:00 Abdominal Girth Measurement [OM.PC] QSHIFT 12/21/16 06:00 Abdominal Girth Measurement [OM.PC] QSHIFT 12/22/16 06:00 Abdominal Girth Measurement [OM.PC] QSHIFT 12/23/16 06:00 Abdominal Girth Measurement [OM.PC] QSHIFT 12/24/16 06:00 Abdominal Girth Measurement [OM.PC] QSHIFT 12/25/16 06:00 Abdominal Girth Measurement [OM.PC] QSHIFT 12/26/16 06:00 Abdominal Girth Measurement [OM.PC] QSHIFT 12/27/16 06:00 Abdominal Girth Measurement [OM.PC] QSHIFT 12/28/16 06:00 Abdominal Girth Measurement [OM.PC] QSHIFT 12/29/16 06:00 Abdominal Girth Measurement [OM.PC] QSHIFT 12/30/16 06:00 Abdominal Girth Measurement [OM.PC] QSHIFT 12/31/16 06:00 Abdominal Girth Measurement [OM.PC] QSHIFT 01/01/17 06:00 Abdominal Girth Measurement [OM.PC] QSHIFT 01/02/17 06:00 Abdominal Girth Measurement [OM.PC] QSHIFT 01/03/17 06:00 Abdominal Girth Measurement [OM.PC] QSHIFT 01/04/17 06:00 Abdominal Girth Measurement [OM.PC] QSHIFT 01/05/17 06:00 Abdominal Girth Measurement [OM.PC] QSHIFT 01/06/17 06:00 Abdominal Girth Measurement [OM.PC] QSHIFT 01/07/17 06:00 Abdominal Girth Measurement [OM.PC] QSHIFT 01/08/17 06:00 Abdominal Girth Measurement [OM.PC] QSHIFT 01/09/17 06:00 Abdominal Girth Measurement [OM.PC] QSHIFT 01/10/17 06:00 Abdominal Girth Measurement [OM.PC] QSHIFT 01/11/17 06:00 Abdominal Girth Measurement [OM.PC] QSHIFT 01/12/17 06:00 Abdominal Girth Measurement [OM.PC] QSHIFT 01/13/17 06:00 Abdominal Girth Measurement [OM.PC] QSHIFT 01/14/17 06:00 Abdominal Girth Measurement [OM.PC] QSHIFT 01/15/17 06:00 Abdominal Girth Measurement [OM.PC] QSHIFT 01/16/17 06:00 Abdominal Girth Measurement [OM.PC] QSHIFT 01/17/17 06:00 Abdominal Girth Measurement [OM.PC] QSHIFT 01/18/17 06:00 Abdominal Girth Measurement [OM.PC] QSHIFT 01/19/17 06:00 Abdominal Girth Measurement [OM.PC] QSHIFT 01/20/17 06:00 Abdominal Girth Measurement [OM.PC] QSHIFT 01/21/17 06:00 Abdominal Girth Measurement [OM.PC] QSHIFT 01/22/17 06:00 Abdominal Girth Measurement [OM.PC] QSHIFT 01/23/17 06:00 Abdominal Girth Measurement [OM.PC] QSHIFT 01/24/17 06:00 Abdominal Girth Measurement [OM.PC] QSHIFT 01/25/17 06:00 Abdominal Girth Measurement [OM.PC] QSHIFT 01/26/17 06:00 Abdominal Girth Measurement [OM.PC] QSHIFT 01/27/17 06:00 Abdominal Girth Measurement [OM.PC] QSHIFT 01/28/17 06:00 Abdominal Girth Measurement [OM.PC] QSHIFT 01/29/17 06:00 Abdominal Girth Measurement [OM.PC] QSHIFT 01/30/17 06:00 Abdominal Girth Measurement [OM.PC] QSHIFT 01/31/17 06:00 Abdominal Girth Measurement [OM.PC] QSHIFT 02/01/17 06:00 Abdominal Girth Measurement [OM.PC] QSHIFT 02/02/17 06:00 Abdominal Girth Measurement [OM.PC] QSHIFT 02/03/17 06:00 Abdominal Girth Measurement [OM.PC] QSHIFT 02/04/17 06:00 Abdominal Girth Measurement [OM.PC] QSHIFT 02/05/17 06:00 Abdominal Girth Measurement [OM.PC] QSHIFT 02/06/17 06:00 Abdominal Girth Measurement [OM.PC] QSHIFT 02/07/17 06:00 Abdominal Girth Measurement [OM.PC] QSHIFT 02/08/17 06:00 Abdominal Girth Measurement [OM.PC] QSHIFT - Plan Plan:: Impression: Severe Abdominal Pain with history of pancreatic cancer Dehydration, resolved AMS, resolved Sunding Leukocytosis RLL infiltrate. Levoquin used as treatment CKD stage IV, improving slowly DNR/DNI Chronic CAD PPM HTN Hyperlipidemia GERD Hypothyroidism GERD Plan: NPO/advance diet as tolerated IVF Continue levoquin Haldol scheduled for restlessness, Nebs PT/OT/SW/CM DVT prophylaxis
[2016-06-18] MEDS: LORazepam 1 MG Tab PO PRN (23:10)
[2016-06-19] MEDS: Heparin Sodium 5,000 Units/ML Vial SUBCUT SCH ×2 (02:01→10:24)
[2016-06-19] MEDS ORDERED: Bisacodyl 10 MG Supp RECTAL ONE (06:19)
[2016-06-19] MEDS: Pantoprazole 40 MG Tab.CR PO SCH (06:33)
[2016-06-19 07:47] VITALS: BP 94/34
[2016-06-19] MEDS: Formoterol/Mometasone 100-5 MCG 8.8 GM Inhaler IH SCH (09:43)
[2016-06-19] MEDS: Aspirin 81 MG Tab.EC PO SCH (10:24)
[2016-06-19] MEDS: Levothyroxine 25 MCG Tab PO SCH (10:24)
--- NOTE | 2016-06-19 17:06 | PCM.DCSUM1 ---
<GuevaraElida Samantha - Last Filed: 06/19/16 19:57> Discharge Summary - Hospital Course Free Text/Narrative:: DC to [place], see above summary. - Discharge Data Discharge Disposition: DC/Tfer to [facility] 65 Condition: Good - Discharge Diagnosis/Problem(s) (1) Chronic renal insufficiency, stage IV (severe) SNOMED Code(s): 19756706 ICD Code: N18.4 - CHRONIC KIDNEY DISEASE, STAGE 4 (SEVERE) Status: Chronic Priority: High (2) Hyponatremia SNOMED Code(s): 58554103 ICD Code: E87.1 - HYPO-OSMOLALITY AND HYPONATREMIA Status: Resolved Priority: High (3) Pancreatic carcinoma SNOMED Code(s): 193681950 ICD Code: C25.9 - MALIGNANT NEOPLASM OF PANCREAS, UNSPECIFIED Status: Chronic Priority: Low (4) Volume depletion SNOMED Code(s): 71733479 ICD Code: E86.9 - VOLUME DEPLETION, UNSPECIFIED Status: Resolved - Patient Summary/Data Consults: Consultations 06/16/16 10:38 Consult to Speech Language Pathology [LISW Evaluation and Treatment] [CONS] Routine 06/16/16 18:31 OT Evaluation and Treatment [CONS] Routine PT Evaluation and Treatment [CONS] Routine - Discharge Plan Prescriptions/Med Rec: Acetaminophen/HYDROcodone [[place] 325-5 MG] 1 tab PO Q6H PRN #30 tablet PRN Reason: Pain Carvedilol [Coreg] 12.5 mg PO BID #60 tablet Docusate Sodium/Sennosides [Senna Plus] 1 tab PO BID PRN #30 tablet PRN Reason: Constipation Home Medications: Home Meds LORazepam [Ativan] 1.5 mg PO BEDTIME PRN 05/16/14 [History] Levothyroxine 25 mcg PO DAILY 05/16/14 [History] Spironolactone 25 mg PO DAILY 05/16/14 [History] Aspirin [Adult Low Dose Aspirin EC] 81 mg PO DAILY 05/08/16 [History] Dexlansoprazole [Dexilant] 60 mg PO DAILY 05/08/16 [History] Loratadine [Claritin] 10 mg PO DAILY 05/08/16 [History] Metoclopramide [Reglan] 5 mg PO DAILY 05/08/16 [History] Mometasone/Formoterol [Dulera 100-5 MCG] 2 puff IH BID 06/15/16 [History] Potassium Chloride 10 meq PO DAILY 06/15/16 [History] traMADol [Ultram] 50 mg PO BID PRN 06/15/16 [History] Acetaminophen/HYDROcodone [[place] 325-5 MG] 1 tab PO Q6H PRN #30 tablet 06/19/16 [Rx] Carvedilol [Coreg] 12.5 mg PO BID #60 tablet 06/19/16 [Rx] Docusate Sodium/Sennosides [Senna Plus] 1 tab PO BID PRN #30 tablet 06/19/16 [Rx ] Furosemide [Lasix] 20 mg PO DAILY #30 06/19/16 [Rx] Patient Handouts: Pancreatic Cancer, Heart Failure, [id number] Referrals: Milady West PA-C [Primary Care Provider] - - Patient Data Vitals - Most Recent: Last Vital Signs Temp 36.3 C 06/19/16 07:36 Pulse 68 06/19/16 07:36 Resp 15 06/19/16 07:36 BP 94/34 L 06/19/16 07:36 Pulse Ox 97 06/19/16 09:44 I&O - Last 24 hours: Intake & Output 06/19/16 06/19/16 06/19/16 06:59 14:59 22:59 Intake Total 400 Output Total 275 Balance 125 Lab Results - Last 24 hrs: Laboratory Results - last 24 hr 06/19/16 06/19/16 Range/Units 07:21 07:21 WBC 12.98 H (3.98-10.04) K/mm3 RBC 3.54 L (3.98-5.22) M/mm3 Hgb 10.3 L (11.2-15.7) gm/L Hct 31.2 L (34.1-44.9) % MCV 88.1 (79.4-94.8) fl MCH 29.1 (25.6-32.2) pg MCHC 33.0 (32.2-35.5) g/dl RDW Std Deviation 44.6 (36.4-46.3) fL Plt Count 125 L (182-369) K/mm3 MPV 9.9 (9.4-12.3) fl Neut % (Auto) 62.1 (34.0-71.1) % Lymph % (Auto) 31.1 (19.3-51.7) % [place] % (Auto) 5.7 (4.7-12.5) % Eos % (Auto) 0.2 L (0.7-5.8) Baso % (Auto) 0.1 (0.1-1.2) % Neut # (Auto) 8.06 H (1.56-6.13) K/mm3 Lymph # (Auto) 4.04 H (1.18-3.74) K/mm3 [place] # (Auto) 0.74 H (0.24-0.36) K/mm3 Eos # (Auto) 0.03 L (0.04-0.36) K/mm3 Baso # (Auto) 0.01 (0.01-0.08) K/mm3 Sodium 133 L (136-145) mEq/L Potassium 3.9 (3.5-5.1) mEq/L Chloride 105 (98-107) mEq/L Carbon Dioxide 18 L (21-32) mEq/L Anion Gap 13.9 (5-15) BUN 43 H (7-18) mg/dL Creatinine 1.8 H (0.55-1.02) mg/dL Est Cr Clr Drug Dosing 19.44 mL/min Estimated GFR (MDRD) 27 (>60) mL/min BUN/Creatinine Ratio 23.9 H (14-18) Glucose 71 L (83-115) mg/dL Calcium 8.8 (8.5-10.1) mg/dL Magnesium 2.1 (1.8-2.4) mg/dl LINO Results - Last 24 hrs: Microbiology 06/17/16 19:00 Streptococcus pneumoniae Antigen (M - Final Urine Med Orders - Current: Current Medications Discontinued Medications Hydrocodone Bitart/Acetaminophen ([place] 325-5 Mg) 1 tab PO Q6H PRN PRN Reason: Abdominal Pain Last Admin: 06/18/16 20:10 Dose: 1 tab Albuterol/Ipratropium (Duoneb 3.0-0.5 Mg/3 Ml) 3 ml NEB QID PRN PRN Reason: Shortness of Breath Aspirin (Halfprin) 81 mg PO DAILY [facility] Last Admin: 06/19/16 10:24 Dose: 81 mg Bisacodyl (Dulcolax) 10 mg RECTAL ONETIME ONE Stop: 06/19/16 06:20 Last Admin: 06/19/16 06:33 Dose: 10 mg Fentanyl (Sublimaze) 25 mcg IVPUSH ONETIME ONE Stop: 06/15/16 21:35 Last Admin: 06/15/16 22:20 Dose: 25 mcg Haloperidol Lactate (Haldol) 0.5 mg IVPUSH ONETIME ONE Stop: 06/17/16 14:13 Last Admin: 06/17/16 17:03 Dose: 0.5 mg Haloperidol Lactate (Haldol) 1 mg IVPUSH ONETIME ONE Stop: 06/17/16 18:27 Last Admin: 06/17/16 19:06 Dose: 1 mg Heparin Sodium (Porcine) (Heparin Sodium) 5,000 units SUBCUT Q8H [facility] Last Admin: 06/16/16 03:22 Dose: Not Given Heparin Sodium (Porcine) (Heparin Sodium) Confirm Administered Dose 5,000 units .ROUTE .STK-MED ONE Stop: 06/16/16 03:01 Last Admin: 06/16/16 03:14 Dose: 5,000 units Heparin Sodium (Porcine) (Heparin Sodium) 5,000 units SUBCUT Q8H [facility] Last Admin: 06/19/16 10:24 Dose: 5,000 units Hydromorphone HCl (Dilaudid) 0.25 mg IVPUSH ONETIME ONE Stop: 06/16/16 00:09 Last Admin: 06/16/16 00:12 Dose: 0.25 mg Sodium Chloride (Normal Saline) 1,000 mls @ 150 mls/hr IV ASDIRECTED [facility] Last Infusion: 06/16/16 00:35 Dose: 999 mls/hr Sodium Chloride (Normal Saline) 1,000 mls @ 75 mls/hr IV ASDIRECTED [facility] Last Admin: 06/17/16 21:02 Dose: 75 mls/hr Levofloxacin/Dextrose 750 mg/ (Premix) 150 mls @ 100 mls/hr IV Q48H [facility] Last Admin: 06/18/16 01:39 Dose: 100 mls/hr Levofloxacin/Dextrose 750 mg/ (Premix) 150 mls @ 100 mls/hr IV Q24H [facility] Magnesium Sulfate 2 gm/ Premix 50 mls @ 25 mls/hr IV ONETIME ONE Stop: 06/17/16 20:40 Last Admin: 06/17/16 19:11 Dose: 25 mls/hr Levofloxacin (Levaquin) 750 mg PO Q48H [facility] Last Admin: 06/18/16 08:17 Dose: 750 mg Levothyroxine Sodium (Levothyroxine) 25 mcg PO DAILY [facility] Last Admin: 06/19/16 10:24 Dose: 25 mcg Lorazepam (Ativan) 1.5 mg PO BEDTIME PRN PRN Reason: Insomnia Last Admin: 06/18/16 23:10 Dose: 1.5 mg Lorazepam (Ativan) 0.5 mg IVPUSH ONETIME ONE Stop: 06/17/16 18:27 Last Admin: 06/17/16 19:09 Dose: 0.5 mg Metoclopramide HCl (Reglan) 10 mg IVPUSH Q6H PRN PRN Reason: Nausea/Vomiting Mometasone Furoate/Formoterol Fumar (Dulera 100-5 Mcg) 0 puff IH BID [facility] Last Admin: 06/19/16 09:43 Dose: 2 puff Morphine Sulfate (Morphine) 1 mg SUBCUT Q2H PRN PRN Reason: Pain Last Admin: 06/18/16 01:40 Dose: 1 mg Ondansetron HCl (Zofran) 4 mg IVPUSH ONETIME ONE Stop: 06/15/16 21:34 Last Admin: 06/15/16 22:20 Dose: 4 mg Ondansetron HCl (Zofran) 4 mg IVPUSH Q8H PRN PRN Reason: Nausea Pantoprazole Sodium (Protonix) 40 mg PO DAILY@0700 [facility] Last Admin: 06/19/16 06:33 Dose: 40 mg Senna/Docusate Sodium (Senna Plus) 1 tab PO BID PRN PRN Reason: Constipation Last Admin: 06/18/16 09:58 Dose: 1 tab *Q Meaningful Use (DIS) - VTE *Q VTE Criteria *Q: - Stroke *Q Stroke Criteria *Q: - AMI *Q AMI Criteria *Q: <Michelle Valle M - Last Filed: 06/20/16 13:18> Discharge Summary - Hospital Course Free Text/Narrative:: 89 year old female with a history of pancreatic cancer has had decreased activity; ingestion of food and water has decreased. She complains of abdominal pain. This is associated with malaise and nausea/vomiting. There has been no fever or chills. She reportedly rarely takes narcotics, but after taking perocet on Thursday and Thursday became obtunded per her children. The patient lives at home in [place] with her bedridden spouse, he is nonverbal; she has been providing care for him for over a year at home now. ED evaluation documented a RLL infiltrate, she has been started on Levaquin in the ED. She is being seen after several hours of hydration and an antibiotic, she appears alert and oriented. At the time she was seen, she was sitting up drinking tea able to answer simple questions. Hospitalist service is consulted for admission as above. Patient was gently hydrated with IVF, treated with IV abx. She was doing well, VSS- hypotension resolved. Repeat CXR's were unremarkable for pneumonia or acute findings. She worked with PT/OT, did well but is in need of assistance and strengthening. She will be discharged to [facility] for further rehab. - Discharge Data Discharge Date: 06/19/16 (admit date06/16/16) - Discharge Diagnosis/Problem(s) (1) Pancreatic carcinoma SNOMED Code(s): 706832415 ICD Code: C25.9 - MALIGNANT NEOPLASM OF PANCREAS, UNSPECIFIED Status: Chronic Priority: Low (2) Anemia SNOMED Code(s): 565650503 ICD Code: D64.9 - ANEMIA, UNSPECIFIED Status: Chronic Priority: High Qualifiers: Anemia type: other cause Other causes of anemia: chronic disease, neoplastic Qualified Code(s): D63.0 - Anemia in neoplastic disease (3) Congestive heart failure SNOMED Code(s): 34044959 ICD Code: I50.9 - HEART FAILURE, UNSPECIFIED Status: Chronic Priority: High Qualifiers: Congestive heart failure type: diastolic Congestive heart failure chronicity: acute on chronic Qualified Code(s): I50.33 - Acute on chronic diastolic (congestive) heart failure (4) Hyponatremia SNOMED Code(s): 40409555 ICD Code: E87.1 - HYPO-OSMOLALITY AND HYPONATREMIA Status: Resolved Priority: High (5) Volume depletion SNOMED Code(s): 97978025 ICD Code: E86.9 - VOLUME DEPLETION, UNSPECIFIED Status: Resolved (6) Ascites SNOMED Code(s): 919587917 ICD Code: R18.8 - OTHER ASCITES Status: Acute Qualifiers: Ascites type: malignant Qualified Code(s): R18.0 - Malignant ascites (7) Chronic renal insufficiency, stage IV (severe) SNOMED Code(s): 28399954 ICD Code: N18.4 - CHRONIC KIDNEY DISEASE, STAGE 4 (SEVERE) Status: Chronic Priority: High (8) Ascites SNOMED Code(s): 161627510 ICD Code: R18.8 - OTHER ASCITES Status: Chronic Priority: Medium Qualifiers: Ascites type: malignant Qualified Code(s): R18.0 - Malignant ascites - Patient Summary/Data Operative Procedure(s) Performed: None Complications: None Consults: Consultations 06/16/16 10:38 Consult to Speech Language Pathology [LISW Evaluation and Treatment] [CONS] Routine 06/16/16 18:31 OT Evaluation and Treatment [CONS] Routine PT Evaluation and Treatment [CONS] Routine Labs Pending at D/C: None Planned Operative Procedure(s) after DC: None Hospital Course: As above - Patient Instructions Diet: Low Sodium Activity: As Tolerated Driving: Do Not Drive Showering/Bathing: May Shower Notify Provider of: Fever, Increased Pain, Swelling and Redness, Nausea and/or Vomiting - Discharge Summary/Plan Comment DC Time >30 min.: Yes (40 min) - General Info Date of Service: 06/19/16 Admission Dx/Problem (Free Text: Admission Diagnosis/Problem Admission Diagnosis/Problem Abdominal pain Functional Status: Reports: pain controlled, tolerating diet, ambulating, urinating. Denies: new symptoms - Review of Systems General: Reports: Weakness, Fatigue HEENT: Reports: no symptoms Pulmonary: Reports: no symptoms Cardiovascular: Reports: No Symptoms Gastrointestinal: Reports: Abdominal pain Genitourinary: Reports: no symptoms Musculoskeletal: Reports: no symptoms Skin: Reports: no symptoms Neurological: Reports: No Symptoms - Patient Data Vitals - Most Recent: Last Vital Signs Temp 97.3 F 06/19/16 07:36 Pulse 68 06/19/16 07:36 Resp 15 06/19/16 07:36 BP 94/34 L 06/19/16 07:36 Pulse Ox 97 06/19/16 09:44 Weight - Most Recent: 145 lb 6.4 oz I&O - Last 24 hours: Intake & Output 06/19/16 06/19/16 06/19/16 06:59 14:59 22:59 Intake Total 400 Output Total 275 Balance 125 Lab Results - Last 24 hrs: Laboratory Results - last 24 hr 06/19/16 06/19/16 Range/Units 07:21 07:21 WBC 12.98 H (3.98-10.04) K/mm3 RBC 3.54 L (3.98-5.22) M/mm3 Hgb 10.3 L (11.2-15.7) gm/L Hct 31.2 L (34.1-44.9) % MCV 88.1 (79.4-94.8) fl MCH 29.1 (25.6-32.2) pg MCHC 33.0 (32.2-35.5) g/dl RDW Std Deviation 44.6 (36.4-46.3) fL Plt Count 125 L (182-369) K/mm3 MPV 9.9 (9.4-12.3) fl Neut % (Auto) 62.1 (34.0-71.1) % Lymph % (Auto) 31.1 (19.3-51.7) % [place] % (Auto) 5.7 (4.7-12.5) % Eos % (Auto) 0.2 L (0.7-5.8) Baso % (Auto) 0.1 (0.1-1.2) % Neut # (Auto) 8.06 H (1.56-6.13) K/mm3 Lymph # (Auto) 4.04 H (1.18-3.74) K/mm3 [place] # (Auto) 0.74 H (0.24-0.36) K/mm3 Eos # (Auto) 0.03 L (0.04-0.36) K/mm3 Baso # (Auto) 0.01 (0.01-0.08) K/mm3 Sodium 133 L (136-145) mEq/L Potassium 3.9 (3.5-5.1) mEq/L Chloride 105 (98-107) mEq/L Carbon Dioxide 18 L (21-32) mEq/L Anion Gap 13.9 (5-15) BUN 43 H (7-18) mg/dL Creatinine 1.8 H (0.55-1.02) mg/dL Est Cr Clr Drug Dosing 19.44 mL/min Estimated GFR (MDRD) 27 (>60) mL/min BUN/Creatinine Ratio 23.9 H (14-18) Glucose 71 L (83-115) mg/dL Calcium 8.8 (8.5-10.1) mg/dL Magnesium 2.1 (1.8-2.4) mg/dl LINO Results - Last 24 hrs: Microbiology 06/17/16 19:00 Streptococcus pneumoniae Antigen (M - Final Urine Med Orders - Current: Current Medications Discontinued Medications Hydrocodone Bitart/Acetaminophen ([place] 325-5 Mg) 1 tab PO Q6H PRN PRN Reason: Abdominal Pain Last Admin: 06/18/16 20:10 Dose: 1 tab Albuterol/Ipratropium (Duoneb 3.0-0.5 Mg/3 Ml) 3 ml NEB QID PRN PRN Reason: Shortness of Breath Aspirin (Halfprin) 81 mg PO DAILY [facility] Last Admin: 06/19/16 10:24 Dose: 81 mg Bisacodyl (Dulcolax) 10 mg RECTAL ONETIME ONE Stop: 06/19/16 06:20 Last Admin: 06/19/16 06:33 Dose: 10 mg Fentanyl (Sublimaze) 25 mcg IVPUSH ONETIME ONE Stop: 06/15/16 21:35 Last Admin: 06/15/16 22:20 Dose: 25 mcg Haloperidol Lactate (Haldol) 0.5 mg IVPUSH ONETIME ONE Stop: 06/17/16 14:13 Last Admin: 06/17/16 17:03 Dose: 0.5 mg Haloperidol Lactate (Haldol) 1 mg IVPUSH ONETIME ONE Stop: 06/17/16 18:27 Last Admin: 06/17/16 19:06 Dose: 1 mg Heparin Sodium (Porcine) (Heparin Sodium) 5,000 units SUBCUT Q8H [facility] Last Admin: 06/16/16 03:22 Dose: Not Given Heparin Sodium (Porcine) (Heparin Sodium) Confirm Administered Dose 5,000 units .ROUTE .STK-MED ONE Stop: 06/16/16 03:01 Last Admin: 06/16/16 03:14 Dose: 5,000 units Heparin Sodium (Porcine) (Heparin Sodium) 5,000 units SUBCUT Q8H [facility] Last Admin: 06/19/16 10:24 Dose: 5,000 units Hydromorphone HCl (Dilaudid) 0.25 mg IVPUSH ONETIME ONE Stop: 06/16/16 00:09 Last Admin: 06/16/16 00:12 Dose: 0.25 mg Sodium Chloride (Normal Saline) 1,000 mls @ 150 mls/hr IV ASDIRECTED [facility] Last Infusion: 06/16/16 00:35 Dose: 999 mls/hr Sodium Chloride (Normal Saline) 1,000 mls @ 75 mls/hr IV ASDIRECTED [facility] Last Admin: 06/17/16 21:02 Dose: 75 mls/hr Levofloxacin/Dextrose 750 mg/ (Premix) 150 mls @ 100 mls/hr IV Q48H [facility] Last Admin: 06/18/16 01:39 Dose: 100 mls/hr Levofloxacin/Dextrose 750 mg/ (Premix) 150 mls @ 100 mls/hr IV Q24H [facility] Magnesium Sulfate 2 gm/ Premix 50 mls @ 25 mls/hr IV ONETIME ONE Stop: 06/17/16 20:40 Last Admin: 06/17/16 19:11 Dose: 25 mls/hr Levofloxacin (Levaquin) 750 mg PO Q48H [facility] Last Admin: 06/18/16 08:17 Dose: 750 mg Levothyroxine Sodium (Levothyroxine) 25 mcg PO DAILY [facility] Last Admin: 06/19/16 10:24 Dose: 25 mcg Lorazepam (Ativan) 1.5 mg PO BEDTIME PRN PRN Reason: Insomnia Last Admin: 06/18/16 23:10 Dose: 1.5 mg Lorazepam (Ativan) 0.5 mg IVPUSH ONETIME ONE Stop: 06/17/16 18:27 Last Admin: 06/17/16 19:09 Dose: 0.5 mg Metoclopramide HCl (Reglan) 10 mg IVPUSH Q6H PRN PRN Reason: Nausea/Vomiting Mometasone Furoate/Formoterol Fumar (Dulera 100-5 Mcg) 0 puff IH BID [facility] Last Admin: 06/19/16 09:43 Dose: 2 puff Morphine Sulfate (Morphine) 1 mg SUBCUT Q2H PRN PRN Reason: Pain Last Admin: 06/18/16 01:40 Dose: 1 mg Ondansetron HCl (Zofran) 4 mg IVPUSH ONETIME ONE Stop: 06/15/16 21:34 Last Admin: 06/15/16 22:20 Dose: 4 mg Ondansetron HCl (Zofran) 4 mg IVPUSH Q8H PRN PRN Reason: Nausea Pantoprazole Sodium (Protonix) 40 mg PO DAILY@0700 [facility] Last Admin: 06/19/16 06:33 Dose: 40 mg Senna/Docusate Sodium (Senna Plus) 1 tab PO BID PRN PRN Reason: Constipation Last Admin: 06/18/16 09:58 Dose: 1 tab - Exam Quality Assessment: Reports: DVT prophylaxis General: Reports: alert, oriented, cooperative, no acute distress HEENT: Reports: Pupils equal, Pupils reactive, EOMI, Mucous membr. moist/pink Neck: Reports: supple Lungs: Reports: Clear to auscultation, Normal respiratory effort Cardiovascular: Reports: Regular Rate, Regular Rhythm Abdomen: Reports: bowel sounds present, distension (Female) Exam: Deferred Rectal (Female) Exam: Deferred Extremities: Reports: no edema Neurological: Reports: no new focal deficit Psy/Mental Status: Reports: alert, normal affect, normal mood *Q Meaningful Use (DIS) - VTE *Q VTE Criteria *Q: - Stroke *Q Stroke Criteria *Q: - AMI *Q AMI Criteria *Q:
== END 2016-06-19 13:20 | DRG 391 ==
LOC: JD.ED 20:43 → JD.MS 06-16 00:32
PROVIDERS: ADMIT Internal Medicine Cardiovascular Disease; ATTEND Internal Medicine Cardiovascular Disease
DX: R10.10 Upper abdominal pain, unspecified (principal); I50.33 Acute on chronic diastolic (congestive) heart failure; E87.1 Hypo-osmolality and hyponatremia; E86.9 Volume depletion, unspecified; D63.0 Anemia in neoplastic disease; R18.0 Malignant ascites; C25.9 Malignant neoplasm of pancreas, unspecified; I13.0 Hypertensive heart and chronic kidney disease with heart failure and stage 1 through stage 4 chronic kidney disease, or unspecified chronic kidney disease; N18.4 Chronic kidney disease, stage 4 (severe); I48.91 Unspecified atrial fibrillation; E86.0 Dehydration; J44.9 Chronic obstructive pulmonary disease, unspecified; E78.00 Pure hypercholesterolemia, unspecified; R41.82 Altered mental status, unspecified; M19.90 Unspecified osteoarthritis, unspecified site; M81.0 Age-related osteoporosis without current pathological fracture; R91.8 Other nonspecific abnormal finding of lung field; F41.9 Anxiety disorder, unspecified; G89.29 Other chronic pain; M54.9 Dorsalgia, unspecified; Z79.82 Long term (current) use of aspirin; Z79.899 Other long term (current) drug therapy; Z88.0 Allergy status to penicillin; Z91.09 Other allergy status, other than to drugs and biological substances; R53.1 Weakness; I25.10 Atherosclerotic heart disease of native coronary artery without angina pectoris; Z66 Do not resuscitate; Z95.0 Presence of cardiac pacemaker; E78.5 Hyperlipidemia, unspecified; K21.9 Gastro-esophageal reflux disease without esophagitis; E03.9 Hypothyroidism, unspecified
CPT/HCPCS: 36415 ×2; 71010; 74000; 80053; 83690; 83735; 83880; 85025; 85610; 85730; 93005; 96361; 96374; 96375; 99285; J1170; J2405; J3010; J7040; 71020; 71020-26; 80048; 83605; 86738; 87899; 94640; 94664; 94761; 96125-GN; 97110-GO; 97116-GP; 97161-GP; 97166-GO; 97530-GO; 97530-GP; A9270-GY; J1630; J1644; J1956; J2060; J2270; J3475